=== PATIENT | female | born 1950 | race African-American/Black ===

== ENCOUNTER 2021-09-29 13:24 | Outpatient (REF) | payer MEDICARE, SELFPAY ==
[2021-09-29 16:34] LABS: MANUAL DIFF FLAG NO
[2021-09-29 16:41] LABS: Basophils Absolute Auto 0.1 X10*3/uL (0.0-0.2); Basophils Percent Auto 0.4 % (0-2); Eosinophils Absolute Auto 0.1 X10*3/uL (0.0-0.4); Eosinophils Percent Auto 0.6 % (0-4); Hematocrit 49.9 % (37.0-47.0); Hemoglobin 15.9 g/dl (12.0-16.0); Imm Gran Abs Auto 0.04 X10*3/uL (0.00-0.03); Imm Gran Pct Auto 0.3 % (0.0-0.4); Lymphocytes Absolute Auto 2.8 X10*3/uL (1.2-4.9); Lymphocytes Percent Auto 22.2 % (20-40); Mean Corpuscular HGB Conc 31.9 g/dl (31.0-35.0); Mean Corpuscular Hemoglobin 28.8 pg (27.0-33.0); Mean Corpuscular Volume 90.2 fL (80.0-98.0); Mean Platelet Volume 12.1 fL (9.4-12.3); Monocytes Absolute Auto 0.7 X10*3/uL (0.1-1.2); Monocytes Percent Auto 5.5 % (2-11); Neutrophils Absolute Auto 8.9 x10*3/uL (2.0-8.3); Platelet Count 251 X10*3/uL (160-400); Red Blood Count 5.53 X10*6/uL (4.20-5.50); Red Cell Distribution Width 14.6 % (11.0-16.0); White Blood Count 12.6 X10*3/uL (4.8-10.8)
[2021-09-29 17:01] LABS: Alanine Aminotransferase 12 U/L (0-31); Anion Gap 14 (12-20); Aspartate Amino Transferase 13 U/L (5-31); Blood Urea Nitrogen 27 mg/dL (9-16); Calcium 9.6 mg/dL (8.4-10.2); Carbon Dioxide 29 mmol/L (22-29); Chloride 101 mmol/L (96-108); Cholesterol 176 mg/dL; Estimated Glomerular Filt Rate 27; Glucose Fasting 142 mg/dL (60-99); HDL Cholesterol 32 mg/dL; LDL Cholesterol Calculated 116 mg/dl; Potassium 3.3 mmol/L (3.3-5.1); Sodium 141 mmol/L (135-145); Triglycerides 140 mg/dL
[2021-09-29 17:05] LABS: Creatinine Urine 288.44 mg/dL; Microalbum/Creatinine Ratio Ur 27.7 ug/mg cr
[2021-09-29 17:13] LABS: TSH reflex Free T4 0.97 uIU/mL (0.32-4.0); Vitamin D 25-OH Total 25.1 ng/mL (>30)
== END 2021-09-29 13:25 | disposition home or self-care (01) ==
LOC: HO.HMGCLDS 13:24
PROVIDERS: Visit Provider Internal Medicine
DX: Z00.01 Encounter for general adult medical examination with abnormal findings (principal); E11.9 Type 2 diabetes mellitus without complications; R42 Dizziness and giddiness; I10 Essential (primary) hypertension; G47.33 Obstructive sleep apnea (adult) (pediatric); Z78.0 Asymptomatic menopausal state; E78.5 Hyperlipidemia, unspecified
CPT/HCPCS: 36415; 80048; 80061; 82043; 82306; 84443; 84450; 84460; 85025

== ENCOUNTER 2022-02-20 11:38 | Outpatient (REF) | payer OTHER, SELFPAY ==
--- NOTE | ~2022-02-20 | US_ITS ---
EXAMINATION: US VENOUS WITH DOPPLER UPPER EXTREMITY, RIGHT CLINICAL INFORMATION: Lump, pain and swelling. COMPARISON: None TECHNIQUE: Ultrasound of the upper extremity is performed using compression sonography and color and pulse Doppler flow with assessment of augmentation of flow. There is also imaging and Doppler assessment of the jugular and subclavian veins. Spectral analysis with color-flow imaging is performed. FINDINGS: Respiratory variation, normal compression, and augmented flow are noted throughout the upper extremity including the axillary, brachial, cubital, and radial and ulnar veins. There is normal flow in the internal jugular and subclavian veins. There is no visible deep or superficial thrombophlebitis. Please note corresponding to the symptomatic area within the right wrist is a solid 6 x 3 x 3.4 cm relatively avascular heterogeneous echogenic mass. US/US venous duplex UE RT IMPRESSION: No DVT demonstrated in the right upper extremity. Nonspecific solid soft tissue mass corresponding to the symptomatic area. Clinical assessment and follow-up indicated. MRI may be obtained for more detailed characterization.
== END 2022-02-20 11:39 | disposition home or self-care (01) ==
LOC: HO.HMGCX 11:38
PROVIDERS: PCP Internal Medicine; Visit Provider Internal Medicine
DX: R22.31 Localized swelling, mass and lump, right upper limb (principal)
CPT/HCPCS: 93971

== ENCOUNTER 2022-06-20 12:42 | Outpatient (REF) | payer OTHER, SELFPAY ==
[2022-06-20 13:25] LABS: MANUAL DIFF FLAG NO
[2022-06-20 13:28] LABS: Basophils Absolute Auto 0.1 X10*3/uL (0.0-0.2); Basophils Percent Auto 0.9 % (0-2); Eosinophils Absolute Auto 0.1 X10*3/uL (0.0-0.4); Eosinophils Percent Auto 0.9 % (0-4); Hematocrit 51.1 % (37.0-47.0); Hemoglobin 16.2 g/dl (12.0-16.0); Imm Gran Abs Auto 0.04 X10*3/uL (0.00-0.03); Imm Gran Pct Auto 0.4 % (0.0-0.4); Lymphocytes Absolute Auto 3.7 X10*3/uL (1.2-4.9); Mean Corpuscular HGB Conc 31.7 g/dl (31.0-35.0); Mean Corpuscular Hemoglobin 29.4 pg (27.0-33.0); Mean Corpuscular Volume 92.7 fL (80.0-98.0); Mean Platelet Volume 11.9 fL (9.4-12.3); Monocytes Absolute Auto 0.5 X10*3/uL (0.1-1.2); Monocytes Percent Auto 4.9 % (2-11); Neutrophils Absolute Auto 6.1 x10*3/uL (2.0-8.3); Neutrophils Percent Auto 57.9 % (45-73); Platelet Count 235 X10*3/uL (160-400); Red Blood Count 5.51 X10*6/uL (4.20-5.50); Red Cell Distribution Width 13.8 % (11.0-16.0); White Blood Count 10.5 X10*3/uL (4.8-10.8)
[2022-06-20 13:56] LABS: Alanine Aminotransferase 13 U/L (0-31); Albumin Level 4.1 g/dL (3.5-5.0); Alkaline Phosphatase 87 U/L (39-117); Anion Gap 12 (12-20); Aspartate Amino Transferase 15 U/L (5-31); Bilirubin Total 0.4 mg/dL (0.0-1.0); Blood Urea Nitrogen 19 mg/dL (9-16); Calcium 9.4 mg/dL (8.4-10.2); Carbon Dioxide 33 mmol/L (22-29); Chloride 100 mmol/L (96-108); Cholesterol 213 mg/dL; Creatinine Urine 179.55 mg/dL; Estimated Glomerular Filt Rate 35; Glucose Fasting 124 mg/dL (60-99); HDL Cholesterol 35 mg/dL; LDL Cholesterol Calculated 152 mg/dl; Potassium 3.4 mmol/L (3.3-5.1); Sodium 142 mmol/L (135-145); Total Protein 7.6 g/dL (6.5-8.0); Triglycerides 133 mg/dL
[2022-06-20 14:11] LABS: TSH reflex Free T4 1.86 uIU/mL (0.32-4.0); Vitamin D 25-OH Total 17.7 ng/mL (>30)
== END 2022-06-20 12:43 | disposition home or self-care (01) ==
LOC: HO.HMGCLDS 12:42
PROVIDERS: PCP Internal Medicine; Visit Provider Internal Medicine
DX: I12.9 Hypertensive chronic kidney disease with stage 1 through stage 4 chronic kidney disease, or unspecified chronic kidney disease (principal); E11.22 Type 2 diabetes mellitus with diabetic chronic kidney disease; N18.9 Chronic kidney disease, unspecified; E78.5 Hyperlipidemia, unspecified; R42 Dizziness and giddiness; Z78.0 Asymptomatic menopausal state
CPT/HCPCS: 36415; 80053; 80061; 82043; 82306; 84443; 85025

== ENCOUNTER 2023-09-25 10:41 | Outpatient (REF) | payer OTHER, SELFPAY ==
[2023-09-25 13:53] LABS: MANUAL DIFF FLAG NO
[2023-09-25 14:00] LABS: Basophils Absolute Auto 0.1 X10*3/uL (0.0-0.2); Basophils Percent Auto 0.6 % (0-2); Eosinophils Absolute Auto 0.1 X10*3/uL (0.0-0.4); Eosinophils Percent Auto 1.2 % (0-4); Hematocrit 47.7 % (37.0-47.0); Hemoglobin 15.1 g/dl (12.0-16.0); Imm Gran Abs Auto 0.03 X10*3/uL (0.00-0.03); Imm Gran Pct Auto 0.3 % (0.0-0.4); Lymphocytes Absolute Auto 3.3 X10*3/uL (1.2-4.9); Mean Corpuscular HGB Conc 31.7 g/dl (31.0-35.0); Mean Corpuscular Hemoglobin 29.4 pg (27.0-33.0); Mean Platelet Volume 12.6 fL (9.4-12.3); Monocytes Absolute Auto 0.6 X10*3/uL (0.1-1.2); Neutrophils Absolute Auto 7.7 x10*3/uL (2.0-8.3); Neutrophils Percent Auto 64.9 % (45-73); Platelet Count 236 X10*3/uL (160-400); Red Blood Count 5.13 X10*6/uL (4.20-5.50); Red Cell Distribution Width 15.1 % (11.0-16.0); White Blood Count 11.8 X10*3/uL (4.8-10.8)
[2023-09-25 14:11] LABS: Estimated Average Glucose 131 mg/dL; Hemoglobin A1c % 6.2 % (<6.0)
[2023-09-25 14:25] LABS: Alanine Aminotransferase 16 U/L (0-31); Alkaline Phosphatase 75 U/L (39-117); Anion Gap 13 (12-20); Aspartate Amino Transferase 18 U/L (5-31); Bilirubin Total 0.4 mg/dL (0.0-1.0); Blood Urea Nitrogen 28 mg/dL (9-16); Calcium 9.8 mg/dL (8.4-10.2); Carbon Dioxide 32 mmol/L (22-29); Chloride 102 mmol/L (96-108); Cholesterol 167 mg/dL (<200); Estimated Glomerular Filt Rate 33; Glucose Fasting 119 mg/dL (60-99); HDL Cholesterol 37 mg/dL (>40); LDL Cholesterol Calculated 111 mg/dL (<100); Potassium 3.2 mmol/L (3.3-5.1); Sodium 144 mmol/L (135-145); Triglycerides 97 mg/dL (<150)
[2023-09-25 14:43] LABS: TSH reflex Free T4 1.39 uIU/mL (0.32-4.0); Vitamin D 25-OH Total 36.9 ng/mL (>30)
[2023-09-26 00:14] LABS: Folate 3.8 ng/mL (> or = 4.0); Vitamin B12 227 pg/mL (200-900)
== END 2023-09-25 10:42 | disposition home or self-care (01) ==
LOC: HO.HMGCLDS 10:41
PROVIDERS: PCP Internal Medicine; Visit Provider Internal Medicine
DX: I10 Essential (primary) hypertension (principal); F33.9 Major depressive disorder, recurrent, unspecified; N18.9 Chronic kidney disease, unspecified; Z85.3 Personal history of malignant neoplasm of breast; E11.9 Type 2 diabetes mellitus without complications; Z78.0 Asymptomatic menopausal state; E78.5 Hyperlipidemia, unspecified; R42 Dizziness and giddiness; I89.0 Lymphedema, not elsewhere classified
CPT/HCPCS: 36415; 80053; 80061; 82306; 82607; 82746; 83036; 84443; 85025

== ENCOUNTER 2023-09-28 11:52 | Outpatient (AMB) | payer OTHER, SELFPAY ==
--- NOTE | 2023-09-28 12:20 | MHC.PC.OV ---
Vital Signs 09/28/23 12:21 Height 5 ft 2.5 in Weight 212 lb BMI 38.2 BP 126/64 Blood Pressure Location Lt brachial Position Sitting Pulse 62 Pulse Source Pulse Oximeter Pulse Oximetry (%) 96 Oxygen Delivery Method Room Air Intake Visit Reasons: Followup diabetes, htn Intake Note: Pt is here today for her f/u DM and HTN Allergies Valium injection Adverse Reaction (Unknown, Uncoded 09/28/23 14:43) halucination Medication List - Last Reconciled 09/28/23 by Latia Maloney MD amlodipine 5 mg PO DAILY atenolol 100 mg PO DAILY atorvastatin 20 mg PO DAILY duloxetine 60 mg PO DAILY fluticasone propionate 50 mcg/actuation 1 spray intranasal DAILY glipizide 5 mg PO DAILY meclizine 25 mg PO BID PRN polyethylene glycol 3350 (Miralax) 17 grams PO DAILY PRN solifenacin 10 mg PO DAILY Tobacco use date assessed: 09/28/23 Fall risk assessment: No Falls in past year Last assessed Fall Risk: 09/28/23 Dental Screening Dental Screen Date: 09/28/23 Did you have a dental visit in the last 12 months?: No Was dental information given to patient?: Patient declined HPI Followup diabetes, htn HPI Details 73-year-old lady with complicated medical history, here today for follow-up. 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 Patient has been complaining of pain and swelling in right arm starting from the right axilla down to the fingers on the right. She states that she went to a lymphedema clinic several years ago but did not find any relief and did not continue going. She has not had a mammogram since 2018. She has chronic kidney disease, hypertension, seen by Dr. Torres in 2020 for evaluation but has been lost to follow-up. Latest fasting labs showed serum creatinine of 1.54 and EGFR 33 with serum electrolytes within normal limits. She has no showed her follow-up with Dr. Torres afterwards. She has chronic low back pain with lumbar radiculitis status post laminectomy syndrome. She was previously being seen by Dr. Ames but was unable to continue seeing her due to insurance not being accepted anymore. Was previously getting relief from lumbar epidural injection, would like a referral to a different painting worker. Complains of intermittent episodes of lightheadedness especially with sudden changes in position. Denies any tinnitus, no ear pain. Has just been taking meclizine as needed which affords only temporary relief. Serum potassium was noted to be low on last check. Patient denies any weakness , chest pain or irregular heartbeat Diabetes mellitus currently on glipizide 5 mg once a day. Latest hemoglobin A1c is at 6.2%. Has not been up-to-date with her diabetes retinopathy screening. Hypertension stable controlled on atenolol and amlodipine, and fasting lipids are stable well controlled on atorvastatin 20 mg daily. Takes solifenacin for urinary incontinence. [facility] Medical History (Updated 09/28/23 @ 14:59 by Latia Maloney MD) Hypokalemia Rhinitis Lumbar radiculopathy, chronic Lumbar postlaminectomy syndrome Vaginal mass Urinary incontinence Subcutaneous mass of right forearm Depression, major, recurrent Chronic kidney disease Positional lightheadedness Lymphedema of right arm History of right breast cancer Diabetes mellitus, without long-term current use of insulin Hx of breast cancer Pain and swelling of toe of left foot Dyslipidemia SAVANNAH (obstructive sleep apnea) Dizziness Confusion and disorientation Impaired fasting glucose Surgical History History of lumpectomy of right breast History of section History of tonsillectomy History of abdominal surgery Family History Father Dementia Mother HTN (hypertension) History of CVA (cerebrovascular accident) Stroke Paternal Grandmother Diabetes mellitus Brother No problems noted. Daughter No problems noted. Social History Housing: House Patient Tobacco Use Status: Former Tobacco user Years Smoked: 35 yrs e-Cigarette/Vaping Use: Never Used Second Hand Smoke Exposure: No service: No Current occupational status: retired Cognitive needs: No Hearing needs: No Vision needs: No Questionnaire PHQ-9 Over the last 2 weeks, how often have you been bothered by any of the following problems? 1. Little interest or pleasure in doing things: several days 2. Feeling down, depressed, or hopeless: several days 3. Trouble falling or staying asleep, or sleeping too much: not at all 4. Feeling tired or having little energy: more than half the days 5. Poor appetite or overeating: several days 6. Feeling bad about yourself - or that you are a failure or have let yourself or your family down: not at all 7. Trouble concentrating on things, such as reading the newspaper or watching television: not at all 8. Moving or speaking so slowly that other people could have noticed. Or the opposite - being so fidgety or restless that you have been moving around a lot more than usual: not at all 9. Thoughts that you would be better off or of hurting yourself in some way: not at all Total score: 5 Depression Screening Interpretation: Positive (Currently stable controlled on duloxetine) Depression Screening Follow-up: Existing condition and In treatment Depression Screening Done: Yes Source: Developed by Drs. Manuel Yoon, Chloe Mahajan, Bienvenido Guzman and colleagues, with an educational milan from [employer]. Thrive Questionnaire Date Thrive assessed: 09/28/23 I am a: Patient What is your living situation today?: I have a steady place to live Within the past 12 months, did the food you bought not last and you didn't have the money to get more?: Never true Within the past 12 months, did you worry whether your food would run out before you got money to buy more?: Never true Do you have trouble paying for medicines?: No Do you have trouble getting transportation to medical appointments?: Yes Do you have trouble paying your heating and electricity bill?: Yes Do you have trouble taking care of your child, family member or friend?: No Do you have trouble with day-to-day activities such as bathing, preparing meals, shopping, managing finances, etc.?: No Are you currently unemployed and looking for a job?: No Are you interested in more education?: No THRIVE Score: 2 AUDIT C Alcohol Use Questionnaire (AUDIT-C) 1. How often do you have a drink containing alcohol?: Never Total Score: 0 JEY-7 AMB Questionnaire JEY-7 Date JEY - 7 assessed: 09/28/23 Feeling nervous, anxious, or on edge: 1 = Several days Not being able to stop or control worryin = Several days Worrying too much about different things: 1 = Several days Trouble relaxin = Several days Being so restless that it is hard to sit still: 0 = Not at all Becoming easily annoyed or irritable: 1 = Several days Feeling afraid as if something awful might happen: 1 = Several days Total JEY-7 score (0-4 normal; 5-9 mild; 10-14 moderate; 15-21 severe): 6 Source: Developed by Drs. Manuel Yoon, Chloe Mahajan, Bienvenido Guzman and colleagues, with an educational milan from [employer]. JEY-7 Assessment Billing JEY-7 Assessment Tool: JEY-7 Assessment 35427 Review of Systems Const Denies fever(s), Denies frequent falls and Denies headache(s) Eyes Details: Overdue for her retinopathy screening Reports no additional complaints ENT Denies headache(s) and Denies sore throat Card Denies chest pain, Denies irregular heart rhythm and Denies dyspnea Resp Denies cough and Denies dyspnea GI Reports no additional complaints Musc Reports as per HPI Skin/Breast Denies rash Neuro Denies frequent falls, Denies headache(s) and Denies focal weakness Psych Reports no additional complaints Endo Denies polydipsia and Denies polyuria Saurabh/Lymph Reports no additional complaints Aller/Immun Reports no additional complaints Physical exam (Primary Care) Vital Signs: Last Vital Signs Pulse 62 09/28/23 12:21 BP 126/64 09/28/23 12:21 Pulse Ox 96 09/28/23 12:21 Oxygen Delivery Method Room Air 09/28/23 12:21 BMI result Body Mass Index 38.2 BMI Assessment/Plan discussion: High BMI High, discussed plan: lifestyle, weight reduction, dietary and physical activity Tobacco/Smoking Status: Tobacco use Status Tobacco use date assessed 09/28/23 09/28/23 12:28 Patient Tobacco Use Status Former Tobacco user 09/28/23 12:20 e-Cigarette/Vaping Use Never Used 09/28/23 12:20 PHQ-9: PHQ-9 Score PHQ-9: Total score 5 09/28/23 14:43 Depression Screening Interpretation: Positive (Currently stable controlled on duloxetine) Depression Screening Follow-up: Existing condition and In treatment Thrive Assessment: Date of Thrive Assessment Date Thrive assessed 09/28/23 09/28/23 13:54 Const Other: Accompanied by daughter who answers most of the questions. Patient very poor historian General: comfortable, no acute distress and alert Nutritional Appearance: obese Orientation/consciousness: patient oriented x3 Limitations: ambulation with walker HENMT Head: Yes normocephalic General nose exam: Normal external nose present, No nasal discharge present and Abnormal mucous membranes and turbinates present boggy, pale and other (Swollen) Face and sinus: Yes face symmetric Mouth: Normal oral and palatal mucosa present, oropharynx normal and moist mucous membranes Neck Neck: Yes full ROM, Yes no lymphadenopathy and Yes supple Resp Auscultation: clear to auscultation bilaterally Cardio Rate: regular rate Rhythm: regular rhythm Heart sounds: S1 normal heart sound present and S2 normal heart sound present GI Inspection: Yes Abdominal panniculus present and Yes obesity Palpation (GI): Soft to palpation, nontender, no guarding and no masses Auscultation: normal bowel sounds Back/Spine/Pelvis Back: back tenderness Thoracic/Lumbar Spine: straight leg raise negative bilaterally, paraspinal muscle tenderness on the right in the lower lumbar and straight leg raise positive (right) Skin General skin exam: no rashes or lesions noted Neuro General: patient oriented x3, gait normal, Normal light touch and pain sensation, no focal motor deficits and CN's II-XI intact bilaterally Extrem Other: Nodular mass palpated on distal aspect of right forearm, nontender to palpation, unable to abduct right arm more than 90 degrees due to pain General: Yes full ROM, Yes no joint enlargement, Yes no pedal edema and Yes no calf tenderness Psych Appearance: grossly normal and well kempt Mental Status: mental status grossly normal Speech and movement: Normal speech and movement present Affect: normal affect Results Reviewed Results Reviewed: Laboratory Tests 06/20/22 09/25/23 12:52 10:49 Estimat Average Glucose 131 Hemoglobin A1c % 6.2 H Urine Creatinine 179.55 Urine Microalbumin 142.0 Microalb/Creat Ratio 79.0 Name: Deb Lopez Age/Sex: 73/F : 1950 Unit#: [id number] Attend Dr: Latia Maloney MD Re09/25/23 Status: DEP REF Location: [facility] Disch: SPEC : [id number] ROSALVA: 09/25/23-1055 STATUS: COMP REQ : [id number] RECD: 09/25/[address]: Latia Maloney MD COMP: 09/25/23-1442 ENTERED: 09/25/23-[address]: ORDERED: CMP Fast, Lipid Panel, Vitamin D 25-OH, TSH Rflx Test Result Flag Reference Sodium 144 135-145 mmol/L Potassium 3.2 L 3.3-5.1 mmol/L CL 102 96-108 mmol/L CO2 32 H 22-29 mmol/L Gap 13 12-20 BUN 28 H 9-16 mg/dL Creat 1.54 H 0.5-1.4 mg/dL EGFR 33 NOTE: For -[place]inames[place] individuals, multiply the result by 1.210. Chronic Kidney Disease: Estimated GFR < 60 mL/min/1.73m2 Severe Kidney Disease: Estimated GFR < 15 mL/min/1.73m2 FBS 119 H 60-99 mg/dL A fasting glucose from 100-125 mg/dl is considered impaired (pre-diabetes). CA 9.8 8.4-10.2 mg/dL Total Bili 0.4 0.0-1.0 mg/dL AST (GOT) 18 5-31 U/L ALT (GPT) 16 0-31 U/L Protein, Total 8.0 6.5-8.0 g/dL Alb 4.0 3.5-5.0 g/dL Triglyceride 97 <150 mg/dL Desirable Triglyceride: less than 150 mg/dL Borderline High Triglyceride 150-199 mg/dL High Triglyceride: 200-499 mg/dL Very High Triglyceride: greater than or equal to 5OO mg/dL Cholesterol 167 <200 mg/dL Desirable Cholesterol: less than 200 mg/dL Borderline High Cholesterol: 200-239 mg/dL High Cholesterol: greater than 239 mg/dL LDL Calculated 111 H <100 mg/dL Desirable LDL: less than 100 mg/dL Near Optimal/Above Optimal LDL: 110-129 mg/dL Borderline High LDL: 130-159 mg/dL High LDL: 160-189 mg/dL Very High LDL: greater than or equal to 190 mg/dL HDL 37 L >40 mg/dL Desirable HDL: greater than 40 mg/dL Note: This HDL assay may give artificially low results in patients with liver disease. Alk Phos 75 39-117 U/L Vit D 25-OH Tot 36.9 >30 ng/mL Health Based Reference Values* < 20 ng/mL Deficient 20-30 ng/mL Insufficient > 30 ng/mL Sufficient *Jaclyn DE LEON. N Engl J Med. 2007;357:266-280 Care must be taken in interpreting Vitamin D results from different laboratories and methodologies. Published data demonstrated that results from patients undergoing hemodialysis may show a negative bias when tested with various automated 25-OH vitamin D assays when compared to LC-MS/MS. When testing samples from patients whose predominant form of Vitamin D is Vitamin D2, such as patients receiving Vitamin D2 supplementation, results that are subtherapeutic should be confirmed with another method such as LC-MS/MS. TSH 1.39 0.32-4.0 uIU/mL Assessment and Plan Assessment & Plan (1) Lymphedema of right arm: Code(s): I89.0 - Lymphedema, not elsewhere classified Plan: Referred to occupational therapy for treatment of lymphedema right (2) History of right breast cancer: Comment: DCIS, status post lumpectomy and radiation therapy in 1994 done at [facility] Code(s): Z85.3 - Personal history of malignant neoplasm of breast Plan: Ordered screening mammogram together with bone density scan (3) Lumbar postlaminectomy syndrome: Code(s): M96.1 - Postlaminectomy syndrome, not elsewhere classified Plan: Referred to painting worker at [facility] (4) Lumbar radiculopathy, chronic: Code(s): M54.16 - Radiculopathy, lumbar region Plan: Referred to pain manage specialist at [facility] (5) Positional lightheadedness: Code(s): R42 - Dizziness and giddiness Plan: Referred to physical therapy for vestibular rehab to check and possible positional vertigo started on prescription (6) Hypokalemia: Code(s): E87.6 - Hypokalemia Plan: Prescription sent for potassium chloride 10 mEq per tablet to take once a day for the next 7 days. Repeat another serum potassium in a week (7) Dyslipidemia: Code(s): E78.5 - Hyperlipidemia, unspecified Plan: Reviewed recent fasting lipid profile with patient with LDL cholesterol not at goal . Continue atorvastatin 20 mg daily, , in addition to adherence to low-cholesterol diet and regular exercise, at least 30 minutes 3 to 4 times a week. Advised patient to make healthy food choices, eat more fruits, vegetables, whole grains, wild caught fish and low-fat dairy. Limit amount of meat and fried or fatty food products, as well as processed foods and fast foods. Follow-up scheduled with repeat fasting lipid panel in 3 months. (8) Essential hypertension: Code(s): I10 - Essential (primary) hypertension Plan: Blood pressure at goal of less than 130/80. Continue with current medication. Reinforced importance of following a low sodium diet, getting regular exercise, and lowering stress levels. (9) Diabetes mellitus, without long-term current use of insulin: Code(s): E11.9 - Type 2 diabetes mellitus without complications Plan: Diabetes mellitus stable controlled on present treatment of glipizide 5 mg daily. Hemoglobin A1c today is 6.2% reinforced importance following recommended diet and staying active. Advised to schedule appointment with Ophthalmology for her diabetes retinopathy screening (10) Chronic kidney disease: Code(s): N18.9 - Chronic kidney disease, unspecified Plan: Stat referral made for her to see Dr. Torres, nephrology for further evaluation. Patient has been lost to follow-up since 2019. Reinforced importance of avoiding NSAIDs, getting diabetes, blood pressure and cholesterol under good control (11) Depression, major, recurrent: Code(s): F33.9 - Major depressive disorder, recurrent, unspecified Plan: Continue duloxetine 60 mg daily (12) Urinary incontinence: Code(s): R32 - Unspecified urinary incontinence Plan: Continue solifenacin 10 mg a day Orders: Orders XR DEXA axial skeleton Today I89.0 - Lymphedema, not elsewhere classified, Z12.31 - Encounter for screening mammogram for malignant neoplasm of breast, Z13.820 - Encounter for screening for osteoporosis, Z78.0 - Asymptomatic menopausal state, Z85.3 - Personal history of malignant neoplasm of breast PT Evaluation and Treatment Today R42 - Dizziness and giddiness OT Evaluation and Treatment Today I89.0 - Lymphedema, not elsewhere classified, Z85.3 - Personal history of malignant neoplasm of breast Hemoglobin A1c 12/11/23 E11.9 - Type 2 diabetes mellitus without complications, E78.5 - Hyperlipidemia, unspecified, I10 - Essential (primary) hypertension, N18.9 - Chronic kidney disease, unspecified, R42 - Dizziness and giddiness, Z78.0 - Asymptomatic menopausal state Alanine Aminotransferase 12/11/23 E11.9 - Type 2 diabetes mellitus without complications, E78.5 - Hyperlipidemia, unspecified, I10 - Essential (primary) hypertension, N18.9 - Chronic kidney disease, unspecified, R42 - Dizziness and giddiness, Z78.0 - Asymptomatic menopausal state Aspartate Amino Transferase 12/11/23 E11.9 - Type 2 diabetes mellitus without complications, E78.5 - Hyperlipidemia, unspecified, I10 - Essential (primary) hypertension, N18.9 - Chronic kidney disease, unspecified, R42 - Dizziness and giddiness, Z78.0 - Asymptomatic menopausal state Lipid Panel 12/11/23 E11.9 - Type 2 diabetes mellitus without complications, E78.5 - Hyperlipidemia, unspecified, I10 - Essential (primary) hypertension, N18.9 - Chronic kidney disease, unspecified, R42 - Dizziness and giddiness, Z78.0 - Asymptomatic menopausal state MM tomosynthesis screening BI Today I89.0 - Lymphedema, not elsewhere classified, Z12.31 - Encounter for screening mammogram for malignant neoplasm of breast, Z13.820 - Encounter for screening for osteoporosis, Z78.0 - Asymptomatic menopausal state, Z85.3 - Personal history of malignant neoplasm of breast Potassium 5 Days E87.6 - Hypokalemia Basic Metabolic Panel Fasting 12/11/23 E11.9 - Type 2 diabetes mellitus without complications, E78.5 - Hyperlipidemia, unspecified, I10 - Essential (primary) hypertension, N18.9 - Chronic kidney disease, unspecified, R42 - Dizziness and giddiness, Z78.0 - Asymptomatic menopausal state Vitamin B12 and Folate 12/11/23 E11.9 - Type 2 diabetes mellitus without complications, E78.5 - Hyperlipidemia, unspecified, I10 - Essential (primary) hypertension, N18.9 - Chronic kidney disease, unspecified, R42 - Dizziness and giddiness, Z78.0 - Asymptomatic menopausal state Vitamin D 25-OH Total 12/11/23 E11.9 - Type 2 diabetes mellitus without complications, E78.5 - Hyperlipidemia, unspecified, I10 - Essential (primary) hypertension, N18.9 - Chronic kidney disease, unspecified, R42 - Dizziness and giddiness, Z78.0 - Asymptomatic menopausal state Referrals Pain Management Referral M54.16 - Radiculopathy, lumbar region, M96.1 - Postlaminectomy syndrome, not elsewhere classified Medications: New potassium chloride ER 10 mEq PO DAILY 7 caps 0RF E87.6 - Hypokalemia Coding Level of Care Code Est Pt Level 4 (46667) Diagnoses Lymphedema of right arm I89.0 History of right breast cancer Z85.3 Lumbar postlaminectomy syndrome M96.1 Lumbar radiculopathy, chronic M54.16 Positional lightheadedness R42 Hypokalemia E87.6 Dyslipidemia E78.5 Essential hypertension I10 Diabetes mellitus, without long-term current use of insulin E11.9 Chronic kidney disease N18.9 Depression, major, recurrent F33.9 Urinary incontinence R32 Additional Codes JEY-7 Assessment Billing - JEY-7 Assessment Tool: JEY-7 Assessment 62122 ([id number])
[2023-09-28 12:21] VITALS: BP 126/64; PULSE 62; O2SAT 96; BMI 38.2
== END 2023-09-28 13:27 | disposition home or self-care (01) ==
PROVIDERS: PCP Internal Medicine; Visit Provider Internal Medicine
DX: I12.9 Hypertensive chronic kidney disease with stage 1 through stage 4 chronic kidney disease, or unspecified chronic kidney disease (principal); E11.22 Type 2 diabetes mellitus with diabetic chronic kidney disease; F33.9 Major depressive disorder, recurrent, unspecified; N18.9 Chronic kidney disease, unspecified; I89.0 Lymphedema, not elsewhere classified; Z85.3 Personal history of malignant neoplasm of breast; M96.1 Postlaminectomy syndrome, not elsewhere classified; M54.16 Radiculopathy, lumbar region; R42 Dizziness and giddiness; E87.6 Hypokalemia; E78.5 Hyperlipidemia, unspecified; R32 Unspecified urinary incontinence
CPT/HCPCS: 99214

== ENCOUNTER 2023-10-12 10:53 | Outpatient (RCR) | payer OTHER, SELFPAY ==
[2023-10-12 11:10] VITALS: BP 160/80; PULSE 59; O2SAT 84
--- NOTE | 2023-10-12 13:05 | MHC.PT.EP ---
[facility] [place] [facility] [place] Office [place] Office [address] [place] [address] [phone] F: [phone] F: [phone] F: [phone] F: [phone] Physical Therapy Plan of Care Date of Evaluation: Date of Surgery: Diagnosis: BPPV Assessment: 73 y/o female referred to PT with BPPV. Pt reports dizziness 'like spinning' for about a year with nausea. This has been mostly constant and with good days and bad days. States she just feels off when she stands up with some associated ear clogging sensation and blurry vision. Examination shows normal cervical AROM, normal VBI, normal smooth pursuits and saccades, and (-) for BPPV in Dannie Hallpike/ Roll Test. Upon standing, pt with increased postural sway and will assess balance next visit. Recommend PT 1x/week for 3 weeks to address balance, implement HEP, and optimize functional mobility. ALso recommended pt f/u with PCP regarding low oxygen saturation readings (daughter states it was low at last MD appointment as well) and will f/u wi eye doctor d/t blurry vision Frequency and Duration: The patient will be seen 1x/week for 3 weeks Short Term Goals: I with HEP Assess balance DGI and static Qa Architect Goals: - Pt will successfully keep center of gravity over her PADMINI for 20 seconds while reaching overhead to grab a dish from overhead cabinets - Pt will look up to rinse hair in shower without LOB or dizziness - I with balance HEP in order to prevent falls - Pt will report 50% decrease in dizziness sx Treatment Plan: Modalities to reduce pain, spasms and effusion. Manual therapy to restore motion and function. Therapeutic exercise to improve strength and flexibility. Neuromuscular re-education for posture and balance. Therapeutic activities to return to functional activities of daily living. Electronically signed by: Jessica Capone PT Please sign and return to therapist. Thank you for your referral.
--- NOTE | 2023-12-07 14:59 | MHC.PT.DC ---
[facility] [place] [facility] [place] [facility] [place] [facility] [address] [place] [address] [phone] F: [phone] F: [phone] F: [phone] F: [phone] Physical Therapy Discharge Report Diagnosis: BPPV Date of Surgery: Date of Evaluation: 10/12/23 Date of Discharge: 12/07/23 Treatments to Date: 1 Cancellations to Date: 0 No Shows to Date: 0 Discharge Status: Patient Elected to Stop Discharge Summary: Pt daughter called to cancel further appointments d/t insurance at this time. Electronically signed by: Jessica Capone PT Please sign and return to therapist. Thank you for your referral.
== END 2023-12-07 14:59 | disposition home or self-care (01) ==
LOC: HO.PT 10:53
PROVIDERS: PCP Internal Medicine; Visit Provider Internal Medicine
DX: R42 Dizziness and giddiness (principal)
CPT/HCPCS: 97162

== ENCOUNTER 2023-10-12 13:09 | Outpatient (AMB) | payer OTHER, SELFPAY ==
--- NOTE | 2023-10-12 13:11 | MHC.OFFVIS ---
Vital Signs 10/12/23 13:26 Height 5 ft 2.5 in Weight 212 lb 2 oz BMI 38.2 BP 140/70 H Blood Pressure Location Lt brachial Position Sitting Respiration 14 Pulse 63 Pulse Source Pulse Oximeter Pulse Oximetry (%) 91 L Oxygen Delivery Method Room Air Intake Visit Reasons: Radiculopathy Lumbar Region Intake Note: Pain 01/14 Rest Room Attendant Required: No Accompanied by: Daughter Allergies Valium injection Adverse Reaction (Unknown, Uncoded 09/28/23 14:43) halucination IVP contrast dye Adverse Reaction (Uncoded 10/12/23 13:28) Unknown HPI HPI Radiculopathy Lumbar Region: Details: Patient is a very pleasant 73-year-old female with prior history of right breast cancer (lumpectomy and radiation in 1994), lymphedema right arm, CKD, DM (A1C 6.2), SAVANNAH, chronic pain syndrome, lumbar degenerative disc disease and lumbar disc herniation, presents today for initial evaluation of low back pain that radiates to her right hip and right groin. Denies any recent trauma, injury, or falls. Patient was previously seen by Dr. Gillis and more recently Dr. Ames and received multiple back injections with good results that provided her at least 2-3 months pain relief. Patient reports insurance change this year which is not accepted at her previous Pain Clinic. She would like to establish care with our office to continue received back injections. She has pending density bone scan. Denies previous spine surgery. Her back pain is limiting her walking capacity, interfering with her ADLs and negatively affecting her sleep and social interactions. Denies any fever, unintentional weight loss, dizziness, shortness of breath, chest pain, bladder or bowel dysfunction, or saddle anesthesia. Reports chronic right arm lymphedema and is interested in Vascular consultation. Oswestry Low Back Disability Score=27 (severe disability) Location: Low back pain, right hip and groin Duration: Chronic pain since early 20's after lifting and carrying heavy mattress Characteristics of symptom or complaint: Throbbing, stabbing, sharp, tugging, burning, radiating, tingling, heavy Aggravating or associated factors: Movements, walking, standing, prolonged sitting Relieving factors: Back injections provide 2-3 months, Tylenol, rest Treatment: Back and SIJ injections; [facility] Medical History (Updated 10/12/23 @ 13:49 by JUVENCIO Jeffrey) Hypokalemia Rhinitis Lumbar radiculopathy, chronic Lumbar postlaminectomy syndrome Vaginal mass Urinary incontinence Subcutaneous mass of right forearm Depression, major, recurrent Chronic kidney disease Positional lightheadedness Lymphedema of right arm History of right breast cancer Diabetes mellitus, without long-term current use of insulin Hx of breast cancer Pain and swelling of toe of left foot Dyslipidemia SAVANNAH (obstructive sleep apnea) Dizziness Confusion and disorientation Impaired fasting glucose Surgical History History of lumpectomy of right breast History of section History of tonsillectomy History of abdominal surgery Family History Father Dementia Mother HTN (hypertension) History of CVA (cerebrovascular accident) Stroke Paternal Grandmother Diabetes mellitus Brother No problems noted. Daughter No problems noted. Social History Housing: House Patient Tobacco Use Status: Former Tobacco user Years Smoked: 35 yrs e-Cigarette/Vaping Use: Never Used Second Hand Smoke Exposure: No service: No Current occupational status: retired Cognitive needs: No Hearing needs: No Vision needs: No Review of Systems Const All systems reviewed & are unremarkable except as noted in HPI and below Physical Exam Vital Signs: Last Vital Signs Pulse 63 10/12/23 13:26 Resp 14 10/12/23 13:26 BP 140/70 H 10/12/23 13:26 Pulse Ox 91 L 10/12/23 13:26 Oxygen Delivery Method Room Air 10/12/23 13:26 BMI result Body Mass Index 38.2 General: Appears afebrile. Alert and oriented. Mood and affect appropriate. Follows and participates in conversation appropriately. Respiratory effort is unlabored. No cough. Able to transition from sit to stand unassisted. Ambulates with assistance of family. Ambulates with bilaterally normal heel strike and toe off, reports unsteadiness on the right. Back/Spine/Pelvis Other: Limited lumbar ROM due to pain. Antalgic gait, mild limping favoring left side. Lumbar flexion and extension reproduce moderate pain. Painful facet loading bilaterally. Demonstrates 5/5 left and 4/5 right due to pain strength of quadriceps bilaterally as well as flexion/dorsiflexion of bilateral feet against resistance. 2+ pedal pulses bilaterally. Seated straight leg rise with dorsiflexion positive bilaterally. Diminished patellar and achilles reflexes bilaterally. Rose sign, limited Andres?s, Pelvic compression and Stinchfield tests are positive on the right. Mild groin pain with right I/E hip rotations. Valsalva maneuver negative. Cervical Spine: cervical muscular tenderness, pain with cervical ROM and No Cervical spine tenderness Thoracic/Lumbar Spine: thoracic and lumbar spine normal to inspection, No Thoracic/lumbar spine scar(s), Lasegue's sign positive bilateral and diffuse, pain with thoraco-lumbar ROM, paraspinal muscle tenderness, thoraco-lumbar ROM limited, No thoracic spinal tenderness and lumbar spinal tenderness (L3-S1) Pelvis: buttock tenderness on the right and no sciatic notch tenderness Sacroiliac joints: bilaterally tender to palpation Results Reviewed Results Reviewed: No imaging reports are available for review today. Assessment & Plan Assessment & Plan (1) Lumbar radiculopathy, chronic: Code(s): M54.16 - Radiculopathy, lumbar region Category: Medical (2) Lumbosacral spondylosis: Code(s): M47.817 - Spondylosis without myelopathy or radiculopathy, lumbosacral region Category: Medical (3) Sacroiliac joint pain: Code(s): M53.3 - Sacrococcygeal disorders, not elsewhere classified Category: Medical (4) Lymphedema of right arm: Code(s): I89.0 - Lymphedema, not elsewhere classified Category: Medical Plan Lumbar spine and hip with pelvic view imaging to assess degree of degenerative changes, any subluxation, listhesis, compression fractures or pars defects. Briefly discussed interventional treatments for axial low back pain, SI joint pain and radicular low back pain. Informational pamphlets provided. Medical release request sent to Kelley Thorpe and Dr. Ames for previous spine imaging and previous injections and procedures. Vascular referral for further evaluation for chronic right arm lymphedema. All questions and concerns have been answered and patient agreed with the plan. Follow-up for x-ray results/old records review and sooner as needed. Orders: Orders XR hip BI w PEL1V Today M53.3 - Sacrococcygeal disorders, not elsewhere classified, M54.16 - Radiculopathy, lumbar region XR lumbar spine 4V min Today M47.817 - Spondylosis without myelopathy or radiculopathy, lumbosacral region, M54.16 - Radiculopathy, lumbar region Referrals Vascular Surgery Referral I89.0 - Lymphedema, not elsewhere classified, Z85.3 - Personal history of malignant neoplasm of breast Coding Level of Care Code New Pt Level 4 (19288) Diagnoses Lumbar radiculopathy, chronic M54.16 Lumbosacral spondylosis M47.817 Sacroiliac joint pain M53.3 Lymphedema of right arm I89.0
[2023-10-12 13:26] VITALS: BP 140/70; PULSE 63; RESP 14; O2SAT 91; BMI 38.2
== END 2023-10-12 14:16 | disposition home or self-care (01) ==
PROVIDERS: PCP Internal Medicine; Referring Provider Internal Medicine; Visit Provider Nurse Practitioner Family
DX: M54.16 Radiculopathy, lumbar region (principal); M47.817 Spondylosis without myelopathy or radiculopathy, lumbosacral region; M53.3 Sacrococcygeal disorders, not elsewhere classified; I89.0 Lymphedema, not elsewhere classified
CPT/HCPCS: 99204

== ENCOUNTER → 2023-10-12 13:09 | Outpatient (BNVA) | payer OTHER, SELFPAY | PROVIDERS: PCP Internal Medicine; Referring Provider Internal Medicine; Visit Provider Nurse Practitioner Family ==

== ENCOUNTER 2024-07-01 10:31 | Outpatient (REF) | payer OTHER, SELFPAY ==
--- OUTSIDE RECORDS SUMMARY | 2024-07-01 10:33 | XMS_ITS | Clinical Summary ---
Author Organization [facility] Address [address] [place] [address] Phone Care Team Providers Care Massage Therapist Name Role Phone Alphonse Maloney MD Primary Care Provider [phone] Allergies Active Allergy Reactions Criticality Noted Date Comments Diazepam Other (see comments) 07/26/2018 Iodinated Contrast Media Rash,Nausea And Vomiting Low 06/17/2005 Medications ketoconazole (NIZORAL) 2 % cream Active amLODIPine (NORVASC) 5 MG tablet Take 1 tablet by mouth 1 (one) time each day Active atorvastatin (Lipitor) 20 MG tablet Take 1 tablet by mouth 1 (one) time each day Active atenolol (TENORMIN) 100 MG tablet Take 1 tablet by mouth 1 (one) time each day 9 Active cholecalciferol (VITAMIN D-3) 1.25 MG (72906 UT) capsule Take 1 capsule by mouth 1 (one) time each day Active DULoxetine HCl 60 MG Capsule Delayed Release Sprinkle Take 1 capsule by mouth 1 (one) time each day Active fluticasone (Flonase) 50 MCG/ACT nasal spray Administer 1 spray into each nostril 1 (one) time each day Active meclizine (ANTIVERT) 25 MG tablet Take 1 tablet by mouth 1 (one) time each day Active solifenacin (VESICARE) 10 MG tablet Take 1 tablet by mouth 1 (one) time each day Active glipiZIDE (GLUCOTROL) 5 MG tablet Take 5 mg by mouth 1 (one) time each day with breakfast 4 Active Active Problems Problem Noted Date Diagnosed Date Localized edema 05/25/2022 Chronic kidney disease stage 3 08/19/2020 Degeneration of lumbar intervertebral disc 03/15 /2021 Hypertensive disorder 08/19/2020 Hypertensive renal disease 08/19/2020 Lumbar post-laminectomy syndrome 08/19/2020 Renal disorder due to type 2 diabetes mellitus 0 08/19/2020 Synovial cyst of popliteal space 07/26/2018 Mixed sleep apnea 10/31/2015 Overview (05/25/2022): Sleep Study 12/18/14. Very severe. Gout, not otherwise specified 09/15/2009 History of malignant neoplasm of breast 12/18/19 06 Overview (05/25/2022): right; 1995; lumpectomy; RT Resolved Problems Problem Noted Date Diagnosed Date Resolved Date Serum creatinine above reference range 08/19/2020 05/25/2022 Immunizations Name Administration Dates Next Due H1N1 Inj Preservative Free 06/06/2009 Influenza Split High Dose Pr eservative Free IM 03/12/2017 Influenza, Unspecified 04/06/2015,2013,03/17/2013,04/06,07/09/2011,02/24/2010,06/06/2009 ,04/10/2008,06/04/2006,05/04/2000 Pneumococcal Conjugate 13-Valent 10/11/2015 Pneumococcal Polysaccharide 03/21/2014 Tdap 09/13/2007 Family History Medical History Relation Comments Dementia Father Hypertension Mother Stroke Mother Diabetes Paternal Grandmother Relation Status Comments Father Mother Paternal Grandmother Social History Tobacco Use Types Packs/Day Years Used Date Smoking Tobacco: Never Smokeless Tobacco: Never Alcohol Use Standard Drinks/Week Comments No 0 (1 standard drink = 0.6 oz pur e alcohol) Comments Unknown Sex and Gender Information Value Date Recorded Sex Assigned at Not on file Legal Sex Female 4:58 PM EST Gender Identity Not on file Sexual Orientation Not on file Plan of Treatment Health Maintenance Due Date Last Done Comments Diabetes: Hemoglobin A1C 07/07/2020 Diabetes: Ophthalmology Exam 07/07/2020 Diabetes: Pedal Pulse Checked 07/07/2020 Diabetes: Sensory Foot Exam 07/07/2020 Diabetes: Visual Foot Exam 07/07/2020 Influenza Vaccine (#1) 2024 7, 04/06/2015, 03/21/2014, Additional history exists Pneumococcal Vaccine: 65+ Years Completed 10/11/2015, 03/21/2014 Hepatitis B Vaccine Aged Out No longe r eligible based on patient's age to complete this topic Insurance HUMANA HUMANA Care Teams Massage Therapist Relationship Specialty Start Date End Date Alphonse Maloney MD [address] [place] [address] PCP - General Internal Medicine 03/04/22
--- OUTSIDE RECORDS SUMMARY | 2024-07-01 10:33 | XMS_ITS | Data Portability ---
Author Organization [facility] Address [address] [facility] [address] [place] [address] Care Team Providers Care Patient Support Specialist Name Role Phone ANH FARRELL Primary Care Provider Assessment Encounter Date Assessment Date Assessment LastModified by Organization Details LastModified Time 10/17/2019 10/17/2019 Deb Lopez chiqui 68 year old woman with complaints of low back pain radiating into both lower extremities, right is greater than left. She is S/P back surgery. Her worse pain is in her low back and radiates into her right lower extremity for the past one month. She is doing a home exercise program with persistent pain. On exam, she has pain on flexion and a positive straight leg raising test on the right. Repeat Lumbar epidural steroid injections under fluoroscopic guidance was recommended. The risks and benefits of the procedure were discussed in detail. She wishes to proceed. An appointment has been booked for the same. She needs a refuse driver on the day of the procedure. [email or web address] Not available 10/23/2019 14:50:20 11/28/2019 11/28/2019 Deb Lopez is a 69 year old woman with complaints of low back pain radiating into both lower extremities, right is greater than left. She is S/P back surgery. Her worse pain is in her low back and radiates into her right lower extremity for the past one month. She is doing a home exercise program with persistent pain. On exam, she has pain on flexion and a positive straight leg raising test on the right.MRI Lumbar spine shows Degenerative changes of the lumbar spine are present with central canal and foraminal narrowing. At L4-L5: Facet arthrosis, ligamentum flavum infolding, and concentric disc-osteophyte complex. Small central disc extrusion extending below the level of the disc space. Mild-moderate central canal narrowing. Left subarticular recess narrowing with crowding of the traversing left L5 nerve roots. Mild right and mild-moderate left foraminal narrowing. She is here for a repeat Lumbar epidural steroid injections under fluoroscopic guidance . The risks and benefits of the procedure were discussed in detail. She wishes to proceed. She needs to follow up in four weeks by a telehealth visit. [email or web address] Not available 11/28/2019 16:04:03 12/25/2019 12/25/2019 Deb Lopez chiqui 68 year old woman with complaints of low back pain radiating into both lower extremities, right is greater than left. She is S/P back surgery. Her worse pain is in her low back and radiates into her right lower extremity for the past one month. She is doing a home exercise program with persistent pain. On exam, she has pain on flexion and a positive straight leg raising test on the right. Repeat Lumbar epidural steroid injections under fluoroscopic guidance was recommended. The risks and benefits of the procedure were discussed in detail. She wishes to proceed. An appointment has been booked for the same. She needs a refuse driver on the day of the procedure. [email or web address] Not available 01/12/2020 13:20:06 03/27/2020 03/27/2020 Deb Lopez chiqui 68 year old woman with complaints of low back pain radiating into both lower extremities, right is greater than left. She is S/P back surgery. Her worse pain is in her low back and radiates into her right lower extremity for the past one month. She is doing a home exercise program with persistent pain. On exam, she has pain on flexion and a positive straight leg raising test on the right.Today she is not feeling well. She has been recently diagnosed with diabetes and kidney disease. I have called over to her PCP's office . They will fax over her lab work. Repeat Lumbar epidural steroid injections under fluoroscopic guidance was recommended once she is on a treatment plan for her diabetes. The risks and benefits of the procedure were discussed in detail. She wishes to proceed. She needs a refuse driver on the day of the procedure. Lab work shows Blood glucose level of 129. Creatinine of 1.24. No HbA1c was recorded. She has an appointment with her PCP next week. She can call for an appointment after that visit. [email or web address] Not available 03/27/2020 14:10:27 02/04/2021 02/04/2021 Deb Lopez is a 70 year old woman with complaints of low back pain radiating into both lower extremities, right is greater than left. She is S/P back surgery. Her worse pain is in her low back and radiates into her right lower extremity for the past one month. She is doing a home exercise program with persistent pain. On exam, she has pain on flexion and a positive straight leg raising test on the right.MRI Lumbar spine shows Degenerative changes of the lumbar spine are present with central canal and foraminal narrowing. At L4-L5: Facet arthrosis, ligamentum flavum infolding, and concentric disc-osteophyte complex. Small central disc extrusion extending below the level of the disc space. Mild-moderate central canal narrowing. Left subarticular recess narrowing with crowding of the traversing left L5 nerve roots. Mild right and mild-moderate left foraminal narrowing. She is here for a repeat Lumbar epidural steroid injections under fluoroscopic guidance . The risks and benefits of the procedure were discussed in detail. She wishes to proceed. She needs to follow up in four weeks by a telehealth visit. [email or web address] Not available 02/04/2021 14:56:08 Plan of Treatment Reminders Order Date Submit Date Provider Last Modified By Organization Details Last Modified Time Details Appointments None record ed. Lab None record ed. Referral None record ed. Procedures None record ed. Surgeries None record ed. Imaging None record ed. Medication Orders None record ed. Patient TargetsNo targets recorded. Patient Instructions Encounter Date Encounter Id Patient Instructions Last Modified By Organization Details Last Modified Time 10/17/2019 [id number] Telehealth visit: The patient was located at home for this telephone electronic visit and gave consent for this visit to be conducted via telehealth. 15 minutes was spent on this call and greater than 50% of the visit was spent on counseling and coordination of care. [email or web address] Not available 10/23/2019 14:50:36 11/28/2019 [id number] She was advised against bed rest lasting longer than four days and to continue activities as tolerated. [email or web address] Not available 11/28/2019 16:02:28 12/25/2019 [id number] Telehealth visit: The patient was located at home for this telephone electronic visit and gave consent for this visit to be conducted via telehealth. 15 minutes was spent on this call and greater than 50% of the visit was spent on counseling and coordination of care. [email or web address] Not available 01/12/2020 13:20:08 02/04/2021 [id number] She was advised against bed rest lasting longer than four days and to continue activities as tolerated. [email or web address] Not available 02/04/2021 14:54:45 Reason for Referral None Reported. Problems Name Problem SNOMED Code Status Onset Date Resolution Date Notes Provider Name and Address Organization Details Recorded Time Lumbosacral radiculopathy 4451862 Active Abe dawn MD [address] , [address], [place], [address], [place] [facility] 08:22:35 Degeneration of lumbar intervertebral disc 92463394 Active Abe dawn MD [address] , [address], [place], [address], [place] [facility] 08:22:47 Lumbar post-laminecto my syndrome 803810831 Active Abe dawn MD [address] , [address], [place], [address], [place] [facility] 08:23:12 Problem Notes None recorded. Procedures Surgical History Date Name Laterality Status Provider Name and Address Organization Details Recorded Time 02/05/20 21 Lumbar Epidural steroid injection under fluoroscopic guidance completed Abe Ames MD [address] , [address], [place], [address], [place] [facility] 02/04/2021 14:55:32 11/28/19 20 Lumbar Epidural steroid injection under fluoroscopic guidance completed Abe Ames MD [address] , [address], [place], [address], [place] [facility] 11/28/2019 16:03:20 05/02/20 19 Lumbar Epidural steroid injection under fluoroscopic guidance completed Abe Ames MD [address] , [address], [place], [address], [place] [facility] 05/03/2019 11:18:17 11/23/19 19 Lumbar Epidural steroid injection under fluoroscopic guidance completed Abe Ames MD [address] [facility] , [address], [place], [address], [facility] 11/23/2018 15:14:16 Other completed Kelsie Malagon [facility] 10/12/2018 15:54:52 section completed Kelsie Malagon [facility] 10/12/2018 15:55:07 Lumpectomy completed Kelsie Malagon [facility] 10/12/2018 15:57:25 Imaging Results None recorded. Procedure Notes None recorded. Medical Equipment None Reported. Allergies Allergen ID Allergen Name Allergen Category Reaction Reaction Severity Criticality Documentation Date Start Date Code Code System Note Provider Name and Address Organization Details Recorded Time 96710 Valium medicatio n confusion Not available Not available 10/12/2018 2 RxNorm IV Kelsie mcclain [facility] 9 15:49:02 69741 Iodinated contrast media (substanc e) medicatio n rash Not available Not available 10/12/2018 26343 2004 SNOMED Kelsie mcclain [place] [facility] 9 15:49:47 Medications Name Sig Start Date Stop Date Status Note LastModified by Organization Details LastModified Time atorvastati n 40 mg tablet active Not Available Not Available Not Available metformin 500 mg tablet TAKE 1 TABLET BY MOUTH DAILY 02/04 completed Not Available Not Available Not Available oxybutynin chloride ER 15 mg tablet,exte nded release 24 hr TK 1 T PO QD active Not Available Not Available No t Available atorvastati n 20 mg tablet TK 1 T PO QD 02/04 completed Not Available Not Available Not Available ketoconazol e 2 % shampoo ANA LUISA 5 ML EXT 3 TIMES A WK PRN active Not Available Not Available No t Available atorvastati n 10 mg tablet TAKE 1 TABLET BY MOUTH DAILY active Not Available Not Available No t Available oxybutynin chloride ER 10 mg tablet,exte nded release 24 hr 10/12 completed Not Available Not Available Not Available atenolol 100 mg tablet TAKE 1 TABLET BY MOUTH DAILY active Not Available Not Available No t Available amlodipine 5 mg tablet TAKE 1 TABLET BY MOUTH DAILY active Not Available Not Available No t Available oxycodone-a cetaminophe n 5 mg-325 mg tablet 10/12 completed Not Available Not Available Not Available meclizine 25 mg tablet TAKE 1 TABLET BY MOUTH TWICE DAILY NEEDED FOR DIZZINESS active Not Available Not Available No t Available amlodipine 5 mg-benazepr il 20 mg capsule 05/02 completed Not Available Not Available Not Available indomethaci n 50 mg capsule TAKE 1 CAPSULE BY MOUTH TWICE DAILY NEEDED FOR PAIN active Not Available Not Available No t Available ketoconazol e 2 % topical cream ANA LUISA EXT AA QD FOR 14 DAYS active Not Available Not Available No t Available fluticasone propionate 50 mcg/actuati on nasal spray,suspe nsion SHAKE LQ AND U 1 SPR IEN QD active Not Available Not Available No t Available duloxetine 60 mg capsule,del ayed release TAKE 1 CAPSULE BY MOUTH DAILY active Not Available Not Available No t Available solifenacin 10 mg tablet TAKE 1 TABLET BY MOUTH DAILY active Not Available Not Available No t Available cholecalcif corazon (vitamin D3) 1,250 mcg (50,000 unit) capsule TK 1 C PO 2 TIMES A WK 02/04 completed Not Available Not Available Not Available Fluzone High-Dose 8513-1490 (PF) 180 mcg/0.5 mL intramuscul ar syringe 10/12 completed Not Available Not Available Not Available Fluzone High-Dose (PF) 180 mcg/0.5 mL intramuscul ar syringe PHARMACIS T ADMINISTE RED IMMUNIZAT ION ADMINISTE RED AT TIME OF DISPENSIN G 10/16 completed Not Available Not Available Not Available Vitals Date Recorded Body height Heart rate Oxygen saturation Oxygen saturation in Arterial blood by Pulse oximetry Systolic blood pressure Diastolic blood pressure Provider Name and Address Organization Details Last Updated DateTime 0 160.02 cm 57 /min 94 % 94 % 150 mm[Hg] 69 mm[Hg] Kaylin [facility] 0 14:41:29 Date Recorded Body height Heart rate Oxygen saturation Oxygen saturation in Arterial blood by Pulse oximetry Systolic blood pressure Diastolic blood pressure Provider Name and Address Organization Details Last Updated DateTime 0 160.02 cm 80 /min 97 % 97 % 198 mm[Hg] 78 mm[Hg] Solitario [facility] 0 10:43:21 Date Recorded Body height Heart rate Oxygen saturation Oxygen saturation in Arterial blood by Pulse oximetry Systolic blood pressure Diastolic blood pressure Provider Name and Address Organization Details Last Updated DateTime 1 160.02 cm 59 /min 96 % 96 % 161 mm[Hg] 68 mm[Hg] Kaylin Velazquez [facility] 1 14:35:13 Social History Question Answer Notes LastModified by Organizat ion Details LastModified Time Tobacco Smoking Status Former Smoker Quit > 20 years Not Available [employer] 03/22/2020 03:16:11 What Is Your Level Of Alcohol Consumption? Occasional [id number] Information not available 03/22/2020 Are You Currently Employed? No [id number] Information not available 03/22/2020 Which Illicit Or Recreational Drugs Have You Used? No [id number] Information not available 03/22/2020 Education 4 Year [employer] Information not available 10/12/2018 What Is Your Occupation? Retired [id number] Information not available 03/22/2020 Live Alone Or With Others? Alone Information not available 10/12/2018 Marital Status Single Informatio n not available 10/12/2018 What Was The Date Of Your Most Recent Tobacco Screening? 11/22/2018 [id number] Information not available 03/22/2020 How Many Years Have You Smoked Tobacco? 30 [id number] Information not available 03/22/2020 Sex: Unknown Functional Status None recorded. Mental Status None recorded. Family History Relationship Description Onset Age of this Age Resolved Age Notes LastModified by Organization Details LastModified Time Mother Cerebrovascu lar accident Not available 01/2019 15:51:27 Medical History Condition Response Headache Y Arthritis Y High Cholesterol Y GERD/Reflux Y Cancer Y Hypertension Y Gynecological HistoryNo gynecological history recorded. Obstetrics History GPAL:G 0 P 0 0 0 0 Past Encounters Encounter ID Performer Location Encounter Start Date Encounter Closed Date Diagnosis/Indication Diagnosis SNOMED-CT Code Diagnosis ICD10 Code Diagnosis Note [id number] Abe Ames MD PAIN OFFICE [address] [facility] [address] [facility] [place] [address] 10/12/2018 15:07:37 10/18/2018 08:23:46 Lumbar post-laminectomy syndrome 258067003 M96.1 Degenerati on of lumbar intervertebral disc 78995086 M51.36 Lumbosacra l radiculopathy 9872481 M54.17 [id number] Abe Ames MD PAIN OFFICE [address] [place] [address] 11/01/2018 13:01:11 11/03/2018 08:57:06 Lumbar post-laminectomy syndrome 865332643 M96.1 Degenerati on of lumbar intervertebral disc 08939244 M51.36 Lumbosacra l radiculopathy 5075097 M54.17 [id number] Abe Ames MD PAIN OFFICE [address] [place] [address] 11/22/2018 15:18:56 11/25/2018 09:38:45 Lumbar post-laminectomy syndrome 499336152 M96.1 Degenerati on of lumbar intervertebral disc 35527692 M51.36 Lumbosacra l radiculopathy 1408319 M54.17 [id number] Abe Ames MD PAIN OFFICE [address] [place] [address] 01/05/2019 14:50:35 01/12/2019 14:17:17 Lumbar post-laminectomy syndrome 294168419 M96.1 Degenerati on of lumbar intervertebral disc 05835706 M51.36 Lumbosacra l radiculopathy 8656445 M54.17 [id number] Abe Ames MD [facility] [address] [place] [address] 05/02/2019 13:46:18 05/03/2019 11:20:56 Lumbar post-laminectomy syndrome 079254762 M96.1 Degenerati on of lumbar intervertebral disc 05557262 M51.36 Lumbosacra l radiculopathy 5242501 M54.17 [id number] Abe Ames MD PAIN OFFICE [address] [address] 10/17/2019 10:32:33 10/23/2019 14:51:06 Lumbar post-laminectomy syndrome 224843879 M96.1 Degenerati on of lumbar intervertebral disc 11888113 M51.36 Lumbosacra l radiculopathy 3593072 M54.17 [id number] Abe Ames MD [facility] [address] [facility] [place] [address] 11/28/2019 14:37:33 11/28/2019 16:11:00 Lumbar post-laminectomy syndrome 059958431 M96.1 Degenerati on of lumbar intervertebral disc 15535989 M51.36 Lumbosacra l radiculopathy 6272293 M54.17 [id number] Abe Ames MD PAIN OFFICE [address] [facility] [place] [address] 12/25/2019 11:34:37 01/12/2020 13:20:59 Lumbar post-laminectomy syndrome 410810350 M96.1 Degenerati on of lumbar intervertebral disc 52995351 M51.36 Lumbosacra l radiculopathy 2581969 M54.17 [id number] Abe Ames MD PAIN OFFICE [address] [facility] [place] [address] 03/27/2020 10:38:44 03/27/2020 14:11:03 Lumbar post-laminectomy syndrome 031214462 M96.1 Degenerati on of lumbar intervertebral disc 99802426 M51.36 Lumbosacra l radiculopathy 4809494 M54.17 [id number] Abe Ames MD [facility] [address] [facility] [place] [address] 02/04/2021 13:58:24 02/04/2021 16:05:18 Lumbar post-laminectomy syndrome 095420779 M96.1 Degenerati on of lumbar intervertebral disc 24425428 M51.36 Lumbosacra l radiculopathy 4286135 M54.17 Health Concerns Section Related Observation LastModified by Organization Detai ls LastModified Time None Recorded Concern Status LastModified by Organization Details LastModified Time None Recorded Advance Directives Directive None Recorded Payers Encounter Date Sequence Insurance Name Policy Number Policy Ramos Covered Member ID Ramos Member ID Guarantor Name 10/17/2019 1 [place] [id number] Deb Lopez [id number] Deb Lopez 11/28/2019 1 [place] [id number] Deb Lopez [id number] Deb Lopez 12/25/2019 1 [place] [id number] Deb Lopez [id number] Deb Lopez 03/27/2020 1 [place] [id number] Deb Lopez [id number] Deb Lopez 02/04/2021 1 [place] [id number] Deb Lopez [id number] Deb Lopez Notes Date Note Type Note Provider Name and Address Organization Details Recorded Time 10/17/2019 text/html This is a follow up after a lumbar epidural steroid injection under fluoroscopic guidance. She reports some pain benefit. She is complaining of low back pain radiating into both lower extremities. She has no history of bladder or bowel incontinence.She is changing her PCP due to insurance issues. Abe Ames MD [address] [facility] , [facility] [address], [place], [address], [place] [facility] 10/23/2019 15:18:31 11/28/2019 text/html She is here for a lumbar epidural steroid injection under fluoroscopic guidance. Abe Ames MD [address] [facility] , [address], [place], [address], [place] [facility] 11/29/2019 08:28:35 12/25/2019 text/html This is a follow up after a lumbar epidural steroid injection under fluoroscopic guidance. She reports some pain benefit. She is complaining of low back pain radiating into both lower extremities. She has no history of bladder or bowel incontinence.She is changing her PCP due to insurance issues. Abe Ames MD [address] [facility] , [address], [place], [address], [place] [facility] 01/15/2020 07:57:42 03/27/2020 text/html She is here for a lumbar epidural steroid injection under fluoroscopic guidance. She recently was not feeling. She was nauseous and had seen her PCP. She was Covid negative. Her labs shows her to be a newly diagnosed diabetic and has increase of creatinine levels. She is continuing to feel poorly today. Abe Ames MD [address] [facility] , [address], [place], [address], [facility] 03/27/2020 16:29:22 02/04/2021 text/html She is here for a lumbar epidural steroid injection under fluoroscopic guidance. Abe Ames MD [address] [facility] , [address], [place], [address], [facility] 02/05/2021 08:23:28 OBGyn Episode No OBEpisode recorded.
--- OUTSIDE RECORDS SUMMARY | 2024-07-01 10:33 | XMS_ITS | Clinical Summary ---
Author Organization [facility] Address [address] [place] [address] Care Team Providers Care Hydro Plant Operator Name Role Phone Yobani Yenni Balderas DO Primary Care Provider Surgical History Surgery Date Site/Laterality Comments SECTION PROCEDURE: SECTION Medical History Medical History Date Comments Cancer (CMS/HCC) DX:Cancer (HCC) Gout DX:Gout Hypertension DX:Hypertension GERD (gastroesophageal reflux disease) DX:GERD (gastroesophageal reflux disease) Social History Tobacco Use Types Packs/Day Years Used Date Smoking Tobacco: Never Assessed Sex and Gender Information Value Date Recorded Sex Assigned at Not on file Gender Identity Not on file Sexual Orientation Not on file Obstetrics History Plan of Treatment Health Maintenance Due Date Last Done Comments Zoster Vaccines (1 of 2) 1998 DTaP,Tdap,and Td Vaccines (2 - Td or Tdap) 09/12/2017 09/13/2007 RSV Immunization Patients 60+ Years Old (1 - 1-dose 75+ series) 2023 Cholesterol Screening (Lipid Panel) 06/01/2023 Colorectal Cancer Screening: Colonoscopy 06/01/2023 Depression Screening 06/01/2023 Falls Risk Assessment 06/01/2023 Hepatitis C Screening 06/01/2023 Hypertension/CHF/CAD Annual BMP Blood Test 06/01/2023 Osteoporosis Screening (Bone Density Screening) 06/01/2023 Social Influencers of Health Screening 06/01/2023 COVID-19 Vaccine ( season) 2024 Influenza Vaccine (#1) 2024 7, 04/06/2015, 03/21/2014, Additional history exists Pneumococcal Vaccine: 65+ Years Completed 10/11/2015, 03/21/2014 HIB Vaccines Aged Out No longer eligi ble based on patient's age to complete this topic HPV Vaccines Aged Out No longer eligi ble based on patient's age to complete this topic Hepatitis A Vaccines Aged Out No long er eligible based on patient's age to complete this topic Hepatitis B Vaccines Aged Out No long er eligible based on patient's age to complete this topic IPV Vaccines Aged Out No longer eligi ble based on patient's age to complete this topic MMR Vaccines Aged Out No longer eligi ble based on patient's age to complete this topic Meningococcal ACWY Vaccine Aged Out N o longer eligible based on patient's age to complete this topic RSV Immunization Patients Under 20 months Aged Out No longer eligible based on patient's age to complete this topic Varicella Vaccines Aged Out No longer eligible based on patient's age to complete this topic Care Teams Hydro Plant Operator Relationship Specialty Start Date End Date Yenni Hilton DO [address] [place], [place] PCP - General Family Medicine 07/13/18
--- OUTSIDE RECORDS SUMMARY | 2024-07-01 10:33 | XMS_ITS | Clinical Summary ---
Author Organization [facility] Address [address] [place] [address] Care Team Providers Care Application Support Developer Name Role Phone Yenni Hilton Primary Care Provider Allergies Active Allergy Reactions Criticality Noted Date Comments Iodinated Contrast Media 07/26/2018 Diazepam 07/26/2018 Medications Medication Sig Dispensed Refills Start Date End Date Status amLODIPine-benazepril (LOTREL 5-20) 5-20 MG per capsule 0 06/30/2018 Activ e atenolol (TENORMIN) tablet 100 mg 0 06/30/2018 Active atorvastatin (LIPITOR) tablet 40 mg 0 07/01/2018 Active DULoxetine (CYMBALTA) DR capsule 60 mg 0 07/10/2018 Active oxybutynin (DITROPAN-XL) 10 MG 24 hr tablet 0 06/30/2018 Active oxyCODONE-acetaminophen (PERCOCET) 5-325 MG per tablet 0 07/11/2018 Activ e Active Problems Problem Noted Date Diagnosed Date Fontenot's cyst of knee, 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 Social History Tobacco Use Types Packs/Day Years Used Date Smoking Tobacco: Never Assessed Sex and Gender Information Value Date Recorded Sex Assigned at Not on file Gender Identity Not on file Sexual Orientation Not on file Last Filed Vital Signs Vital Sign Reading Time Taken Comments Blood Pressure - - Pulse - - Temperature - - Respiratory Rate - - Oxygen Saturation - - Inhaled Oxygen Concentration - - Weight 100.2 kg (221 lb) 07/26/2018 2:52 PM EST Height 157.5 cm (5' 2 ) 07/26/2018 2:52 PM EST Body Mass Index 40.42 07/26/2018 2:52 PM EST Plan of Treatment Health Maintenance Due Date Last Done Comments Hepatitis C Screening 1950 COVID-19 Vaccine (#1) 1950 Depression Screening 1960 Preventative Health Evaluation 1966 DTap / Tdap / Td (1 - Tdap) 1967 Shingrix-Zoster Vaccine (1 of 2) 1998 Fall Risk Assessment 2013 Osteoporosis Screening (DEXA Scan) 2013 Pneumococcal Vaccine (1 of 1 - PCV) 2013 RSV Adult > 60+ Yrs or Pregn ant (1 - 1-dose 75+ series) 2023 Influenza Vaccine (#1) 2024 Hepatitis B Vaccines Aged Out No long er eligible based on patient's age to complete this topic RSV Ped < 20 months Aged Out No longe r eligible based on patient's age to complete this topic Care Teams Application Support Developer Relationship Specialty Start Date End Date Yenni Hilton DO [address] [id number] PCP - General Family Medicine 07/13/18
[2024-07-01 13:17] LABS: Estimated Average Glucose 128 mg/dL; Hemoglobin A1C 176.8949 umol/L; Hemoglobin A1c % 6.1 % (<6.0); Total Hemoglobin (HGBA1C) 4098.6302 umol/L
[2024-07-01 13:29] LABS: Alanine Aminotransferase 11 U/L (0-31); Anion Gap 10 (12-20); Aspartate Amino Transferase 20 U/L (5-31); Blood Urea Nitrogen 17 mg/dL (9-16); Calcium 9.3 mg/dL (8.4-10.2); Carbon Dioxide 33 mmol/L (22-29); Chloride 101 mmol/L (96-108); Cholesterol 165 mg/dL (<200); Estimated Glomerular Filt Rate 45; Glucose Fasting 109 mg/dL (60-99); HDL Cholesterol 34 mg/dL (>40); LDL Cholesterol Calculated 105 mg/dL (<100); Potassium 3.2 mmol/L (3.3-5.1); Sodium 141 mmol/L (135-145); Triglycerides 131 mg/dL (<150)
[2024-07-01 13:45] LABS: Vitamin D 25-OH Total 27.3 ng/mL (>30)
[2024-07-01 13:59] LABS: Folate 3.6 ng/mL (> or = 4.0); Vitamin B12 234 pg/mL (200-900)
== END 2024-07-01 10:32 | disposition home or self-care (01) ==
LOC: HO.HMGCLDS 10:31
PROVIDERS: PCP Internal Medicine; Visit Provider Internal Medicine
DX: E11.22 Type 2 diabetes mellitus with diabetic chronic kidney disease (principal); I12.9 Hypertensive chronic kidney disease with stage 1 through stage 4 chronic kidney disease, or unspecified chronic kidney disease; N18.9 Chronic kidney disease, unspecified; E78.5 Hyperlipidemia, unspecified; R42 Dizziness and giddiness; Z78.0 Asymptomatic menopausal state
CPT/HCPCS: 36415; 80048; 80061; 82306; 82607; 82746; 83036; 84450; 84460

== ENCOUNTER 2024-07-04 12:56 | Outpatient (AMB) | payer OTHER, SELFPAY ==
--- NOTE | 2024-07-04 12:58 | MHC.PC.OV ---
Vital Signs 07/04/24 12:59 Height 5 ft 2.5 in Weight 213 lb BMI 38.3 BP 110/82 Blood Pressure Location Lt brachial Position Sitting Respiration 14 Pulse 58 Pulse Source Pulse Oximeter Temp 98.5 F Temp Source Oral Pulse Oximetry (%) 95 Oxygen Delivery Method Room Air Intake Visit Reasons: Labs f/up-ok with [facility] Valium injection Adverse Reaction (Unknown, Uncoded 07/04/24 13:10) halucination IVP contrast dye Adverse Reaction (Uncoded 07/04/24 13:10) Unknown Medication List - Last Reconciled 07/04/24 by Latia Maloney MD amlodipine 5 mg PO DAILY atenolol 100 mg PO DAILY atorvastatin 20 mg PO DAILY duloxetine 60 mg PO DAILY fluticasone propionate 50 mcg/actuation 1 spray intranasal DAILY glipizide 5 mg PO DAILY meclizine 25 mg PO BID PRN polyethylene glycol 3350 (Miralax) 17 grams PO DAILY PRN potassium chloride ER 10 mEq PO DAILY solifenacin 10 mg PO DAILY Tobacco use date assessed: 07/04/24 Fall risk assessment: No Falls in past year Last assessed Fall Risk: 07/04/24 Dental Screening Dental Screen Date: 07/04/24 Did you have a dental visit in the last 12 months?: No Did you have a dental problem in the last 6 months where you did not have access to dental care?: No Was dental information given to patient?: No HPI Labs f/up-ok with [facility] HPI Details 74-year-old lady with hypertension, hyperlipidemia, diabetes mellitus, here today for follow-up. She has been compliant with taking her medications, with recent fasting labs showing control of diabetes, with hemoglobin A1c at 6.1%, and fasting lipids are within normal limits . Her blood pressure is controlled on atenolol and amlodipine Complains intermittent episodes of epigastric pain usually after food intake and at night. Denies any accompanying nausea, no vomiting, no blood in stool, or alteration in bowel habits She also has been complaining of pain and stiffness in both shoulder joints especially on abduction and hyperextension of joints, no history of trauma [facility] Medical History (Updated 07/10/24 @ 01:18 by Latia Maloney MD) Heartburn symptom Hypokalemia Rhinitis Lumbar radiculopathy, chronic Lumbar postlaminectomy syndrome Vaginal mass Urinary incontinence Subcutaneous mass of right forearm Depression, major, recurrent Chronic kidney disease Positional lightheadedness Lymphedema of right arm History of right breast cancer Diabetes mellitus, without long-term current use of insulin Hx of breast cancer Pain and swelling of toe of left foot Dyslipidemia SAVANNAH (obstructive sleep apnea) Dizziness Confusion and disorientation Impaired fasting glucose Surgical History History of lumpectomy of right breast History of section History of tonsillectomy History of abdominal surgery Family History Father Dementia Mother HTN (hypertension) History of CVA (cerebrovascular accident) Stroke Paternal Grandmother Diabetes mellitus Brother No problems noted. Daughter No problems noted. Social History Housing: House Patient Tobacco Use Status: Former Tobacco user Years Smoked: 35 yrs e-Cigarette/Vaping Use: Never Used Second Hand Smoke Exposure: No service: No Current occupational status: retired Cognitive needs: No Hearing needs: No Vision needs: Yes Questionnaire Thrive Questionnaire Date Thrive assessed: 09/28/23 JEY-7 AMB Questionnaire JEY-7 Date JEY - 7 assessed: 09/28/23 Source: Developed by Drs. Manuel Yoon, Chloe Mahajan, Bienvenido Guzman and colleagues, with an educational milan from [employer]. Review of Systems Const Denies fever(s), Denies frequent falls and Denies headache(s) Eyes Details: Overdue for her retinopathy screening Reports no additional complaints ENT Denies headache(s) Card Denies chest pain, Denies irregular heart rhythm and Denies dyspnea Resp Denies cough and Denies dyspnea GI Reports as per HPI Reports no additional complaints Musc Reports no additional complaints Neuro Denies frequent falls, Denies headache(s) and Denies focal weakness Psych Reports no additional complaints Endo Denies polydipsia and Denies polyuria Saurabh/Lymph Reports no additional complaints Aller/Immun Reports no additional complaints Physical exam (Primary Care) Vital Signs: Last Vital Signs Temp 98.5 F 07/04/24 12:59 Pulse 58 07/04/24 12:59 Resp 14 07/04/24 12:59 BP 110/82 07/04/24 12:59 Pulse Ox 95 07/04/24 12:59 Oxygen Delivery Method Room Air 07/04/24 12:59 BMI result Body Mass Index 38.3 BMI Assessment/Plan discussion: High BMI High, discussed plan: lifestyle, weight reduction, dietary and physical activity Tobacco/Smoking Status: Tobacco use Status Tobacco use date assessed 07/04/24 07/04/24 13:10 Patient Tobacco Use Status Former Tobacco user 07/04/24 13:00 e-Cigarette/Vaping Use Never Used 07/04/24 13:00 Thrive Assessment: Date of Thrive Assessment Date Thrive assessed 09/28/23 07/04/24 13:00 Const General: no acute distress and alert Nutritional Appearance: obese Orientation/consciousness: patient oriented x3 Limitations: ambulation with walker HENMT Head: Yes normocephalic General nose exam: Normal external nose present and No nasal discharge present Face and sinus: Yes face symmetric Mouth: Normal oral and palatal mucosa present, oropharynx normal and moist mucous membranes Neck Neck: Yes full ROM, Yes no lymphadenopathy and Yes supple Resp Auscultation: clear to auscultation bilaterally Cardio Rate: regular rate Rhythm: regular rhythm Heart sounds: S1 normal heart sound present and S2 normal heart sound present GI Inspection: Yes Abdominal panniculus present and Yes obesity Palpation (GI): Soft to palpation, Tenderness to palpation present (GI) in the epigastrum, no guarding and no masses Auscultation: normal bowel sounds Back/Spine/Pelvis Back: back tenderness Neuro General: patient oriented x3, gait normal, Normal light touch and pain sensation, no focal motor deficits and CN's II-XI intact bilaterally Extrem Other: Decreased range of motion of shoulder joint due to pain , no gross bone deformity or joint swelling seen General: Yes no joint enlargement, Yes no pedal edema and Yes no calf tenderness Results Reviewed Results Reviewed: Laboratory Tests 07/01/24 10:50 Estimat Average Glucose 128 Hemoglobin A1c % 6.1 H Name: Deb Lopez Age/Sex: 74/F : 1950 Unit#: [id number] Attend Dr: Latia Maloney MD Re07/01/24 Status: DEP REF Location: [facility] Disch: SPEC : [id number] ROSALVA: 07/01/24-1050 STATUS: COMP REQ : [id number] RECD: 07/01/24-[address]: Latia Maloney MD COMP: 07/01/24-1345 ENTERED: 07/01/24-[address]: ORDERED: Met Prof Fast, AST, ALT, Lipid Panel, Vitamin D 25-OH Test Result Flag Reference Sodium 141 135-145 mmol/L Potassium 3.2 L 3.3-5.1 mmol/L CL 101 96-108 mmol/L CO2 33 H 22-29 mmol/L Gap 10 L 12-20 BUN 17 H 9-16 mg/dL Creat 1.16 0.5-1.4 mg/dL eGFR 45 Chronic Kidney Disease: Estimated GFR < 60 mL/min/1.73m2 Severe Kidney Disease: Estimated GFR < 15 mL/min/1.73m2 FBS 109 H 60-99 mg/dL A fasting glucose from 100-125 mg/dl is considered impaired (pre-diabetes). CA 9.3 8.4-10.2 mg/dL AST (GOT) 20 5-31 U/L ALT (GPT) 11 0-31 U/L Triglyceride 131 <150 mg/dL Desirable Triglyceride: less than 150 mg/dL Borderline High Triglyceride 150-199 mg/dL High Triglyceride: 200-499 mg/dL Very High Triglyceride: greater than or equal to 5OO mg/dL Cholesterol 165 <200 mg/dL Desirable Cholesterol: less than 200 mg/dL Borderline High Cholesterol: 200-239 mg/dL High Cholesterol: greater than 239 mg/dL LDL Calculated 105 H <100 mg/dL Desirable LDL: less than 100 mg/dL Near Optimal/Above Optimal LDL: 110-129 mg/dL Borderline High LDL: 130-159 mg/dL High LDL: 160-189 mg/dL Very High LDL: greater than or equal to 190 mg/dL HDL 34 L >40 mg/dL Desirable HDL: greater than 40 mg/dL Note: This HDL assay may give artificially low results in patients with liver disease. Vit D 25-OH Tot 27.3 L >30 ng/mL Health Based Reference Values* < 20 ng/mL Deficient 20-30 ng/mL Insufficient > 30 ng/mL Sufficient Coding Level of Care Code Est Pt Level 4 (55055) Complex EM visit Add On G2211 Diagnoses Heartburn symptom R12 Hypokalemia E87.6 Folic acid deficiency E53.8 Vitamin D deficiency E55.9 Bilateral shoulder pain M25.511; M25.512 Diabetes mellitus, without long-term current use of insulin E11.9 Essential hypertension I10 Dyslipidemia E78.5 Stage 3a chronic kidney disease N18.31 Chronic kidney disease stage: stage 3 (moderate) Chronic kidney disease stage 3 subtype: stage 3a (GFR 45-59) Assessment & Plan Assessment & Plan (1) Heartburn symptom: Code(s): R12 - Heartburn Category: Medical Plan: Upper GI series ordered, advised to try taking [id number] Pepcid AC 20 mg daily before eating (2) Hypokalemia: Code(s): E87.6 - Hypokalemia Category: Medical Plan: Latest fasting labs showed low potassium level, prescription sent for potassium chloride ER 10 mEq to take 1 tablet daily for 7 days. (3) Folic acid deficiency: Code(s): E53.8 - Deficiency of other specified B group vitamins Category: Medical Plan: Check folic acid level (4) Vitamin D deficiency: Code(s): E55.9 - Vitamin D deficiency, unspecified Category: Medical Plan: Check vitamin-D level prescription sent for vitamin-D 3 50 mcg per tablet to take once a day (5) Bilateral shoulder pain: Code(s): M25.511 - Pain in right shoulder; M25.512 - Pain in left shoulder Category: Medical Plan: X-ray of right and left shoulder ordered. Prescription sent for meloxicam to take 50 mg once a day as needed for pain take it always with a meal (6) Diabetes mellitus, without long-term current use of insulin: Code(s): E11.9 - Type 2 diabetes mellitus without complications Category: Medical Plan: Diabetes mellitus controlled, continue with adherence to healthy eating habits and continue taking glipizide 5 mg once a day with a meal. Advised to schedule appointment with Ophthalmology for diabetes retinopathy screening (7) Essential hypertension: Code(s): I10 - Essential (primary) hypertension Category: Medical Plan: Blood pressure at goal of less than 130/80. Continue with amlodipine 5 mg daily atenolol 100 mg daily Reinforced importance of following a low sodium diet, getting regular exercise, and lowering stress levels. (8) Dyslipidemia: Code(s): E78.5 - Hyperlipidemia, unspecified Category: Medical Plan: Fasting lipids are within normal limits except for mildly elevated LDL cholesterol, continue on atorvastatin 20 mg daily (9) Chronic kidney disease: Code(s): N18.9 - Chronic kidney disease, unspecified Category: Medical Qualifiers: Chronic kidney disease stage: stage 3 (moderate) Chronic kidney disease stage 3 subtype: stage 3a (GFR 45-59) Qualified Code(s): N18.31 - Chronic kidney disease, stage 3a Plan: Previously was being seen by Dr. Torres and was supposed to schedule follow-up appointment. Patient's daughter states that they will call and schedule appointment with Nephrology Orders: Orders XR shoulder RT min 2V 07/04/24 M25.511 - Pain in right shoulder, M25.512 - Pain in left shoulder Vitamin B12 and Folate 07/04/24 E53.8 - Deficiency of other specified B group vitamins, E55.9 - Vitamin D deficiency, unspecified, E87.6 - Hypokalemia Vitamin D 25-OH Total 07/04/24 E53.8 - Deficiency of other specified B group vitamins, E55.9 - Vitamin D deficiency, unspecified, E87.6 - Hypokalemia FL upper GI series 07/04/24 R12 - Heartburn XR shoulder LT min 2V 07/04/24 M25.511 - Pain in right shoulder, M25.512 - Pain in left shoulder Basic Metabolic Panel Fasting 07/04/24 E53.8 - Deficiency of other specified B group vitamins, E55.9 - Vitamin D deficiency, unspecified, E87.6 - Hypokalemia Medications: New cholecalciferol (vitamin D3) 50 mcg PO DAILY 90 caps 2RF meloxicam Take always with a meal 15 mg PO DAILY PRN 30 tabs 0RF Shoulder pain folic acid 1 mg PO DAILY 90 tabs 0RF Refilled potassium chloride ER 10 mEq PO DAILY 7 caps 0RF E87.6 - Hypokalemia Discontinued polyethylene glycol 3350 Discontinued Reason: Patient no longer taking 17 grams PO DAILY PRN 14 ea 0RF constipation
[2024-07-04 12:59] VITALS: BP 110/82; PULSE 58; RESP 14; TEMP 36.9; O2SAT 95; BMI 38.3
--- OUTSIDE RECORDS SUMMARY | 2024-07-04 13:51 | XMS_ITS | Data Portability ---
Author Organization [facility] Address [address] [facility] [address] [place] [address] Care Team Providers Care Safety Deposit Boxes Custodian Name Role Phone ANH FARRELL Primary Care [...] booked for the same. She needs a regional company flatbed truck driver on the day of the procedure. [...] booked for the same. She needs a regional company flatbed truck driver on the day of the procedure. [...] She wishes to proceed. She needs a regional company flatbed truck driver on the day of the procedure. [...] By Organization Details Last Modified Time 10/17/2019 [id number] Telehealth visit: The patient was located at home for this telephone electronic visit and gave consent for this visit to be conducted via telehealth. 15 minutes was spent on this call and greater than 50% of the visit was spent on counseling and coordination of care. [email or web address] Not available 10/23/2019 14:50:36 11/28/2019 [id number] She was advised against bed rest lasting longer than four days and to continue activities as tolerated. [email or web address] Not available 11/28/2019 16:02:28 12/25/2019 [id number] Telehealth visit: The patient was located at home for this telephone electronic visit and gave consent for this visit to be conducted via telehealth. 15 minutes was spent on this call and greater than 50% of the visit was spent on counseling and coordination of care. [email or web address] Not available 01/12/2020 13:20:08 02/04/2021 [id number] She was advised against bed rest lasting longer than four days and to continue activities as tolerated. [email or web address] Not available 02/04/2021 14:54:45 Reason for Referral None Reported. Problems Name Problem SNOMED Code Status Onset Date Resolution Date Notes Provider Name and Address Organization Details Recorded Time Lumbosacral radiculopathy 9978476 Active Abe dawn MD [address] , [address], [place], [address], [place] [facility] 08:22:35 Degeneration of lumbar intervertebral disc 14378152 Active Abe dawn MD [address] , [address], [place], [address], [place] [facility] 08:22:47 Lumbar post-laminecto my syndrome 877574216 Active Abe dawn MD [address] , [address], [place], [address], [place] [facility] 08:23:12 Problem Notes None recorded. Procedures Surgical History Date Name Laterality Status Provider Name and Address Organization Details Recorded Time 02/05/20 21 Lumbar Epidural steroid injection under fluoroscopic guidance completed Abe Ames MD [address] , [address], [place], [address], [place] [facility] 02/04/2021 14:55:32 11/28/19 20 Lumbar Epidural steroid injection under fluoroscopic guidance completed Abe Ames MD [address] , [address], [place], [address], [place] [facility] 11/28/2019 16:03:20 05/02/20 19 Lumbar Epidural steroid injection under fluoroscopic guidance completed Abe Ames MD [address] , [address], [place], [address], [place] [facility] 05/03/2019 11:18:17 11/23/19 19 Lumbar Epidural steroid injection under fluoroscopic guidance completed Abe Ames MD [address] [facility] , [address], [place], [address], [facility] 11/23/2018 15:14:16 [...] Name and Address Organization Details Recorded Time 56789 Valium medicatio n confusion Not available Not available 10/12/2018 2 RxNorm IV Kelsie mcclain [place] [facility] 9 15:49:02 93586 Iodinated contrast media (substanc e) medicatio n rash Not available Not available 10/12/2018 59822 2004 SNOMED Kelsie mcclain [place] [facility] [...] Available Not Available Not Available Fluzone High-Dose 8690-7649 (PF) 180 mcg/0.5 mL intramuscul ar syringe [...] Is Your Level Of Alcohol Consumption? Occasional [id number] Information not available 03/22/2020 Are You Currently Employed? No [id number] Information not available 03/22/2020 Which Illicit Or Recreational Drugs Have You Used? No [id number] Information not available 03/22/2020 Education 4 Year College [employer] Information not available 10/12/2018 What Is Your Occupation? Retired [id number] Information not available 03/22/2020 Live Alone Or With Others? Alone Information not available 10/12/2018 Marital Status Single Informatio n not available 10/12/2018 What Was The Date Of Your Most Recent Tobacco Screening? 11/22/2018 [id number] Information not available 03/22/2020 How Many Years Have You Smoked Tobacco? 30 [id number] Information not available 03/22/2020 Sex: Unknown Functional Status None recorded. Mental Status None recorded. Family History Relationship Description Onset Age of this Age Resolved Age Notes LastModified by Organization Details LastModified Time Mother Cerebrovascu lar accident Not available 01/2019 15:51:27 Medical History Condition Response Arthritis Y Cancer Y Headache Y High Cholesterol Y GERD/Reflux Y Hypertension Y Gynecological HistoryNo gynecological history recorded. Obstetrics History GPAL:G 0 P 0 0 0 0 Past Encounters Encounter ID Performer Location Encounter Start Date Encounter Closed Date Diagnosis/Indication Diagnosis SNOMED-CT Code Diagnosis ICD10 Code Diagnosis Note [id number] Abe Ames MD PAIN OFFICE [address] [facility] [address] [facility] [place] [address] 10/12/2018 15:07:37 10/18/2018 08:23:46 Lumbar post-laminectomy syndrome 081872960 M96.1 Degenerati on of lumbar intervertebral disc 64611807 M51.36 Lumbosacra l radiculopathy 3513025 M54.17 [id number] Abe Ames MD PAIN OFFICE [address] [employer] [place] [address] 11/01/2018 13:01:11 11/03/2018 08:57:06 Lumbar post-laminectomy syndrome 526040684 M96.1 Degenerati on of lumbar intervertebral disc 58913696 M51.36 Lumbosacra l radiculopathy 6726498 M54.17 [id number] Abe Ames MD PAIN OFFICE [address] [place] [address] 11/22/2018 15:18:56 11/25/2018 09:38:45 Lumbar post-laminectomy syndrome 473797061 M96.1 Degenerati on of lumbar intervertebral disc 93299986 M51.36 Lumbosacra l radiculopathy 1528251 M54.17 [id number] Abe Ames MD PAIN OFFICE [address] [place] [address] 01/05/2019 14:50:35 01/12/2019 14:17:17 Lumbar post-laminectomy syndrome 832476393 M96.1 Degenerati on of lumbar intervertebral disc 56537876 M51.36 Lumbosacra l radiculopathy 4999987 M54.17 [id number] Abe Ames MD [facility] [address] [employer] [place] [address] 05/02/2019 13:46:18 05/03/2019 11:20:56 Lumbar post-laminectomy syndrome 472978447 M96.1 Degenerati on of lumbar intervertebral disc 57974829 M51.36 Lumbosacra l radiculopathy 0958450 M54.17 [id number] Abe Ames MD PAIN OFFICE [address] [employer],[place] [address] 10/17/2019 10:32:33 10/23/2019 14:51:06 Lumbar post-laminectomy syndrome 113651058 M96.1 Degenerati on of lumbar intervertebral disc 31602906 M51.36 Lumbosacra l radiculopathy 5361416 M54.17 [id number] Abe Ames MD [facility] [address] [employer] [address] [facility] [place] [address] 11/28/2019 14:37:33 11/28/2019 16:11:00 Lumbar post-laminectomy syndrome 942414954 M96.1 Degenerati on of lumbar intervertebral disc 31809335 M51.36 Lumbosacra l radiculopathy 7398483 M54.17 [id number] Abe Ames MD PAIN OFFICE [address] [employer] [facility] [place] [address] 12/25/2019 11:34:37 01/12/2020 13:20:59 Lumbar post-laminectomy syndrome 015634745 M96.1 Degenerati on of lumbar intervertebral disc 41884117 M51.36 Lumbosacra l radiculopathy 0258126 M54.17 [id number] Abe Ames MD PAIN OFFICE [address] [employer] [employer] [facility] [place] [address] 03/27/2020 10:38:44 03/27/2020 14:11:03 Lumbar post-laminectomy syndrome 190742760 M96.1 Degenerati on of lumbar intervertebral disc 56813186 M51.36 Lumbosacra l radiculopathy 9940754 M54.17 [id number] Abe Ames MD [facility] [address] [employer] [facility] [place] [address] 02/04/2021 13:58:24 02/04/2021 16:05:18 Lumbar post-laminectomy syndrome 700858174 M96.1 Degenerati on of lumbar intervertebral disc 01829353 M51.36 Lumbosacra l radiculopathy 1815897 M54.17 Health Concerns Section Related Observation LastModified by Organization Detai ls LastModified Time None Recorded Concern Status LastModified by Organization Details LastModified Time None Recorded Advance Directives Directive None Recorded Payers Encounter Date Sequence Insurance Name Policy Number Policy Ramos Covered Member ID Ramos Member ID Guarantor Name 10/17/2019 1 [place] [id number] Deb Lopez [id number] Deb Lopez 11/28/2019 1 [place] [id number] Deb Lopez [id number] Deb Lopez 12/25/2019 1 [place] [id number] Deb Lopez [id number] Deb Lopez 03/27/2020 1 [place] [id number] Deb Lopez [id number] Deb Lopez 02/04/2021 1 [place] [id number] Deb Lopez [id number] Deb Lopez Notes Date Note Type Note [...] to insurance issues. Abe Ames MD [address] [facility] , [facility] [address], [place], [address], [place] [facility] 10/23/2019 15:18:31 11/28/2019 text/html She is here for a lumbar epidural steroid injection under fluoroscopic guidance. Abe Ames MD [address] [facility] , [address], [place], [address], [place] [facility] 11/29/2019 08:28:35 12/25/2019 text/html This is a follow up after a lumbar epidural steroid injection under fluoroscopic guidance. She reports some pain benefit. She is complaining of low back pain radiating into both lower extremities. She has no history of bladder or bowel incontinence.She is changing her PCP due to insurance issues. Abe Ames MD [address] [facility] , [address], [place], [address], [place] [facility] 01/15/2020 07:57:42 [...] feel poorly today. Abe Ames MD [address] [facility] , [address], [place], [address], [facility] 03/27/2020 16:29:22 02/04/2021 text/html She is here for a lumbar epidural steroid injection under fluoroscopic guidance. Abe Ames MD [address] [facility] , [address], [place], [address], [facility] 02/05/2021 08:23:28 OBGyn Episode No OBEpisode recorded.
--- OUTSIDE RECORDS SUMMARY | 2024-07-04 13:51 | XMS_ITS | Clinical Summary ---
Author Organization [facility] Address [address] [place] [address] Care Team Providers Care Electronic Funds Transfer Coordinator Name Role Phone Yobani Yenni Balderas DO [...] age to complete this topic Care Teams Electronic Funds Transfer Coordinator Relationship Specialty Start Date End Date Yenni Hilton DO [address] [place], [place] PCP - General Family Medicine 07/13/18
--- OUTSIDE RECORDS SUMMARY | 2024-07-04 13:51 | XMS_ITS | Clinical Summary ---
Author Organization [facility] Address [address] [place] [address] Phone Care Team Providers Care Executive Vice President Business Development Name Role Phone Alphonse Maloney MD Primary Care Provider [phone] Allergies Active Allergy Reactions Criticality Noted Date [...] 9 Active cholecalciferol (VITAMIN D-3) 1.25 MG (76941 UT) capsule Take 1 capsule by mouth [...] this topic Insurance HUMANA HUMANA Care Teams Executive Vice President Business Development Relationship Specialty Start Date End Date Alphonse Maloney MD [address] [place] [address] PCP - General Internal Medicine 03/04/22
--- OUTSIDE RECORDS SUMMARY | 2024-07-04 13:51 | XMS_ITS | Clinical Summary ---
Author Organization [facility] Address [address] [place] [address] Care Team Providers Care Advertising Campaign Manager Name Role Phone Yenni Hilton Primary Care Provider [phone] Allergies Active Allergy Reactions Criticality Noted Date [...] age to complete this topic Care Teams Advertising Campaign Manager Relationship Specialty Start Date End Date Yenni Hilotn DO [address] [address] PCP - General Family Medicine 07/13/18
== END 2024-07-04 13:55 | disposition home or self-care (01) ==
PROVIDERS: PCP Internal Medicine; Visit Provider Internal Medicine
DX: I12.9 Hypertensive chronic kidney disease with stage 1 through stage 4 chronic kidney disease, or unspecified chronic kidney disease (principal); E11.69 Type 2 diabetes mellitus with other specified complication; N18.31 Chronic kidney disease, stage 3a; R12 Heartburn; E87.6 Hypokalemia; E53.8 Deficiency of other specified B group vitamins; E55.9 Vitamin D deficiency, unspecified; M25.511 Pain in right shoulder; M25.512 Pain in left shoulder; E78.5 Hyperlipidemia, unspecified

== ENCOUNTER 2024-07-04 12:56 | Outpatient (REF) | payer OTHER, SELFPAY ==
--- NOTE | ~2024-07-04 | XR_ITS ---
EXAMINATION: XR SHOULDER, RIGHT CLINICAL INFORMATION: M25.511 - Pain in right shoulder COMPARISON: None available. TECHNIQUE: Three views of the right shoulder. FINDINGS: No fracture, dislocation, or suspicious bone lesion. There is anatomical alignment. Moderate to severe arthritis in the glenohumeral joint with significant joint space loss, subchondral cystic and sclerotic changes of both the humeral head and the glenoid. Moderate-sized undersurface osteophytes. Mild spurring of the AC joint superiorly and inferiorly. There is a small subacromial spur with a neutral lateral acromion. No significant narrowing of the subacromial space. Surgical clips present in the right axilla. Remainder of the soft tissue and bony structures appear normal. XR/XR shoulder RT min 2V IMPRESSION: 1. No acute findings right shoulder. 2. Moderate to severe likely degenerative arthritis of the glenohumeral joint. 3. Mild arthritis of the AC joint. Electronically signed by: Vincent Stark MD 07/05/2024 03:27 PM [facility]
--- NOTE | ~2024-07-04 | XR_ITS ---
EXAMINATION: XR SHOULDER, LEFT CLINICAL INFORMATION: Pain in left shoulder. COMPARISON: None available. TECHNIQUE: Three views of the left shoulder. FINDINGS: No fracture, dislocation, or suspicious bone lesion. There is anatomical alignment. Moderate arthritis in the glenohumeral joint with significant joint space loss, and mild subchondral cystic and sclerotic changes of both the humeral head and the glenoid. Moderate-sized undersurface osteophytes. Mild spurring of the AC joint superiorly and inferiorly. There is a tiny subacromial spur with a neutral lateral acromion. No significant narrowing of the subacromial space. Remainder of the soft tissue and bony structures appear normal. XR/XR shoulder LT min 2V IMPRESSION: 1. No acute findings left shoulder. 2. Moderate likely degenerative arthritis of the glenohumeral joint. 3. Mild arthritis of the AC joint. Electronically signed by: iVncent Stark MD 07/05/2024 03:30 PM [facility]
--- OUTSIDE RECORDS SUMMARY | 2024-07-04 14:54 | XMS_ITS | Clinical Summary ---
Author Organization [facility] Address [address] [place] [address] Phone Care Team Providers Care Soap Drier Tender Name Role Phone Alphonse Maloney MD Primary Care Provider [phone] Allergies Active Allergy Reactions Criticality Noted Date [...] 9 Active cholecalciferol (VITAMIN D-3) 1.25 MG (64016 UT) capsule Take 1 capsule by mouth [...] this topic Insurance HUMANA HUMANA Care Teams Soap Drier Tender Relationship Specialty Start Date End Date Alphonse Maloney MD [address] [place] [address] PCP - General Internal Medicine 03/04/22
--- OUTSIDE RECORDS SUMMARY | 2024-07-04 14:54 | XMS_ITS | Clinical Summary ---
Author Organization [facility] Address [address] [place] [address] Care Team Providers Care Satellite Television Installer Name Role Phone Yobani Yenni Balderas DO [...] age to complete this topic Care Teams Satellite Television Installer Relationship Specialty Start Date End Date Yenni Hilton DO [address] [place], [place] PCP - General Family Medicine 07/13/18
--- OUTSIDE RECORDS SUMMARY | 2024-07-04 14:54 | XMS_ITS | Clinical Summary ---
Author Organization [facility] Address [address] [place] [address] Care Team Providers Care Waterproofing Mixer Name Role Phone Yenni Hilton Primary Care Provider [phone] Allergies Active Allergy Reactions Criticality Noted Date [...] age to complete this topic Care Teams Waterproofing Mixer Relationship Specialty Start Date End Date Yenni Hilton DO [address] [address] PCP - General Family Medicine 07/13/18
== END 2024-07-04 12:57 | disposition home or self-care (01) ==
LOC: HO.HMGCX 12:56
PROVIDERS: PCP Internal Medicine; Visit Provider Internal Medicine
DX: M25.511 Pain in right shoulder (principal); M25.512 Pain in left shoulder
CPT/HCPCS: 73030

== ENCOUNTER → 2024-07-04 14:03 | Outpatient (BNV) | payer OTHER, SELFPAY | PROVIDERS: PCP Internal Medicine; Visit Provider Radiology Diagnostic Radiology | DX: M25.511 Pain in right shoulder (principal); M25.512 Pain in left shoulder | CPT/HCPCS: 73030 ==

== ENCOUNTER 2025-01-30 12:58 | Outpatient (AMB) | payer OTHER, SELFPAY ==
[2025-01-30 13:01] VITALS: BP 140/80; PULSE 70; RESP 16; TEMP 36.9; O2SAT 94; BMI 35.8
--- NOTE | 2025-01-30 13:01 | A.OFFPC_ITS ---
Vital Signs 01/30/25 13:01 Height 5 ft 2.5 in Weight 199 lb BMI 35.8 BP 140/80 H Blood Pressure Location Rt brachial Position Sitting Respiration 16 Pulse 70 Pulse Source Pulse Oximeter Temp 98.5 F Temp Source Oral Pulse Oximetry (%) 94 Oxygen Delivery Method Nasal Cannula Intake Visit Reasons: [facility] low O2 levels Intake Note: Pt is here today for her HD[facility] low O2 levels Allergies Valium injection Adverse Reaction (Unknown, Uncoded 01/30/25 13:17) halucination IVP contrast dye Adverse Reaction (Uncoded 01/30/25 13:17) Unknown Medication List - Last Reconciled 01/30/25 by Latia Maloney MD amlodipine 5 mg PO DAILY atorvastatin 20 mg PO DAILY carvedilol 12.5 mg PO Q12H cholecalciferol (vitamin D3) 50 mcg PO DAILY duloxetine 60 mg PO DAILY fluticasone propionate 50 mcg/actuation 1 spray intranasal DAILY folic acid 1 mg PO DAILY furosemide (Lasix) 40 mg PO BID meclizine 25 mg PO BID PRN meloxicam 15 mg PO DAILY PRN potassium chloride ER 10 mEq PO DAILY sennosides (Black-Draught Lax-Senna) 8.6 mg PO DAILY PRN solifenacin 10 mg PO DAILY spironolactone 25 mg PO DAILY Tobacco use date assessed: 01/30/25 Fall risk assessment: 1 Fall in past year Last assessed Fall Risk: 01/30/25 Dental Screening Dental Screen Date: 01/30/25 Did you have a dental visit in the last 12 months?: No Did you have a dental problem in the last 6 months where you did not have access to dental care?: No Was dental information given to patient?: Patient declined HPI [facility] low O2 levels HPI Details - The patient is a 74-year-old female pr esenting after recent hospital admission for congestive heart failure. Treated with IV furosemide with food to see and swelling lower extremities - Chronic Kidney Disease Stage 3: Histor y of chronic kidney disease, last seen by nephrology in 2019, no regular follow-up - Obstructive Sleep Apnea: Diagnosed in 2014, no CPAP use, intolerant to using it. Referral for repeat sleep study made. - Prediabetes: Borderline glucose levels , switched from glipizide to dapagliflozin for glucose control and heart failure management. - Cataracts: History of cataracts, under went laser surgery for vision correction. [facility] Medical History (Updated 01/30/25 @ 13:51 by Latia Maloney MD) CKD stage 3b, GFR 30-44 ml/min Heartburn symptom Hypokalemia Rhinitis Lumbar radiculopathy, chronic Lumbar postlaminectomy syndrome Vaginal mass Urinary incontinence Subcutaneous mass of right forearm Depression, major, recurrent Positional lightheadedness Lymphedema of right arm History of right breast cancer Diabetes mellitus, without long-term current use of insulin Hx of breast cancer Pain and swelling of toe of left foot Dyslipidemia SAVANNAH (obstructive sleep apnea) Dizziness Confusion and disorientation Impaired fasting glucose Surgical History History of lumpectomy of right breast History of section History of tonsillectomy History of abdominal surgery Family History Father Dementia Mother HTN (hypertension) History of CVA (cerebrovascular accident) Stroke Paternal Grandmother Diabetes mellitus Brother No problems noted. Daughter No problems noted. Social History Housing: House Patient Tobacco Use Status: Former Tobacco user Years Smoked: 35 yrs e-Cigarette/Vaping Use: Never Used Second Hand Smoke Exposure: No service: No Current occupational status: retired Cognitive needs: No Hearing needs: No Vision needs: Yes Questionnaire PHQ-9 Over the last 2 weeks, how often have you been bothered by any of the following problems? 1. Little interest or pleasure in doing things: not at all 2. Feeling down, depressed, or hopeless: not at all 3. Trouble falling or staying asleep, or sleeping too much: not at all 4. Feeling tired or having little energy: not at all 5. Poor appetite or overeating: several days 6. Feeling bad about yourself - or that you are a failure or have let yourself or your family down: not at all 7. Trouble concentrating on things, such as reading the newspaper or watching television: not at all 8. Moving or speaking so slowly that other people could have noticed. Or the opposite - being so fidgety or restless that you have been moving around a lot more than usual: not at all 9. Thoughts that you would be better off or of hurting yourself in some way: not at all Total score: 1 Depression Screening Interpretation: Negative Depression Screening Done: Yes 95005 - PHQ-9 Billing: Yes Source: Developed by Drs. Manuel Yoon, Chloe Mahajan, Bienvenido Guzman and colleagues, with an educational milan from [employer]. Thrive Questionnaire Date Thrive assessed: 09/28/23 I am a: Patient What is your living situation today?: I have a steady place to live Within the past 12 months, did the food you bought not last and you didn't have the money to get more?: Never true Within the past 12 months, did you worry whether your food would run out before you got money to buy more?: Never true Do you have trouble paying for medicines?: Yes Do you have trouble getting transportation to medical appointments?: No Do you have trouble paying your heating and electricity bill?: Yes Do you have trouble taking care of your child, family member or friend?: No Do you have trouble with day-to-day activities such as bathing, preparing meals, shopping, managing finances, etc.?: No Are you currently unemployed and looking for a job?: No Are you interested in more education?: No Please select the resources that you would like help with: Paying for medicine and Utilities Currently or been in a relationship where the following occur: No concerns reported THRIVE Score: 1 AUDIT C Alcohol Use Questionnaire (AUDIT-C) 1. How often do you have a drink containing alcohol?: Monthly or less 2. How many drinks containing alcohol do you have on a typical day when you are drinking?: 1 or 2 3. How often do you have six or more drinks on one occasion?: Never Total Score: 1 JEY-7 AMB Questionnaire JEY-7 Date JEY - 7 assessed: 09/28/23 Feeling nervous, anxious, or on edge: 0 = Not at all Not being able to stop or control worryin = Not at all Worrying too much about different things: 0 = Not at all Trouble relaxin = Not at all Being so restless that it is hard to sit still: 0 = Not at all Becoming easily annoyed or irritable: 0 = Not at all Feeling afraid as if something awful might happen: 0 = Not at all Total JEY-7 score (0-4 normal; 5-9 mild; 10-14 moderate; 15-21 severe): 0 Source: Developed by Drs. Manuel Yoon, Chloe Mahajan, Bienvenido Guzman and colleagues, with an educational milan from [employer]. Review of Systems Const Denies fever(s) and Denies headache(s) Eyes Reports no additional complaints ENT Denies headache(s) Card Denies chest pain and Denies irregular heart rhythm Resp Details: : Reports dyspnea on exertion, uses supplemental oxygen at 2 liters at rest and 3-4 liters when active. Denies cough GI Reports as per HPI Reports no additional complaints Musc Reports no additional complaints Neuro Denies headache(s) and Denies focal weakness Psych Reports no additional complaints Endo Denies polydipsia and Denies polyuria Saurabh/Lymph Reports no additional complaints Aller/Immun Reports no additional complaints Physical exam (Primary Care) Vital Signs: Last Vital Signs Temp 98.5 F 01/30/25 13:01 Pulse 70 01/30/25 13:01 Resp 16 01/30/25 13:01 BP 140/80 H 01/30/25 13:01 Pulse Ox 94 01/30/25 13:01 Oxygen Delivery Method Nasal Cannula 01/30/25 13:01 BMI result Body Mass Index 35.8 BMI Assessment/Plan discussion: High BMI High, discussed plan: lifestyle, weight reduction, dietary and physical activity Tobacco/Smoking Status: Tobacco use Status Tobacco use date assessed 01/30/25 01/30/25 13:08 Patient Tobacco Use Status Former Tobacco user 01/30/25 13:08 e-Cigarette/Vaping Use Never Used 01/30/25 13:08 PHQ-9: PHQ-9 Score PHQ-9: Total score 1 01/30/25 13:20 Depression Screening Interpretation: Negative Thrive Assessment: Date of Thrive Assessment Date Thrive assessed 09/28/23 01/30/25 13:08 Currently or been in a relationship where the following occur: No concerns reported Const General: no acute distress and alert Nutritional Appearance: obese Orientation/consciousness: patient oriented x3 Limitations: ambulation with walker HENMT Head: Yes normocephalic General nose exam: Normal external nose present Face and sinus: Yes face symmetric Mouth: Normal oral and palatal mucosa present, oropharynx normal and moist mucous membranes Neck Neck: Yes full ROM, Yes no lymphadenopathy and Yes supple Resp Auscultation: clear to auscultation bilaterally Cardio Rate: regular rate Rhythm: regular rhythm Heart sounds: S1 normal heart sound present and S2 normal heart sound present GI Inspection: Yes Abdominal panniculus present and Yes obesity Palpation (GI): Soft to palpation, no guarding and no masses Auscultation: normal bowel sounds Neuro General: patient oriented x3, gait normal, Normal light touch and pain sensation, no focal motor deficits and CN's II-XI intact bilaterally Extrem Other: Decreased range of motion of shoulder joint due to pain , no gross bone deformity or joint swelling seen General: Yes no joint enlargement, Yes no pedal edema and Yes no calf tenderness Coding Level of Care Code Est Pt Level 4 (90700) Complex EM visit Add On G2211 Diagnoses SAVANNAH (obstructive sleep apnea) G47.33 Dyslipidemia E78.5 Essential hypertension I10 Diabetes mellitus, without long-term current use of insulin E11.9 Vitamin D deficiency E55.9 CKD stage 3b, GFR 30-44 ml/min N18.32 Hypokalemia E87.6 History of acute heart failure Z86.79 Additional Codes PHQ-9 - 98456 - PHQ-9 Billing: Yes ([id number]) Assessment & Plan Assessment & Plan (1) SAVANNAH (obstructive sleep apnea): Code(s): G47.33 - Obstructive sleep apnea (adult) (pediatric) Category: Medical (2) Dyslipidemia: Code(s): E78.5 - Hyperlipidemia, unspecified Category: Medical (3) Essential hypertension: Code(s): I10 - Essential (primary) hypertension Category: Medical (4) Diabetes mellitus, without long-term current use of insulin: Code(s): E11.9 - Type 2 diabetes mellitus without complications Category: Medical (5) Vitamin D deficiency: Code(s): E55.9 - Vitamin D deficiency, unspecified Category: Medical (6) CKD stage 3b, GFR 30-44 ml/min: Code(s): N18.32 - Chronic kidney disease, stage 3b Category: Medical (7) Dyslipidemia: Code(s): E78.5 - Hyperlipidemia, unspecified Category: Medical (8) Essential hypertension: Code(s): I10 - Essential (primary) hypertension Category: Medical (9) Vitamin D deficiency: Code(s): E55.9 - Vitamin D deficiency, unspecified Category: Medical (10) Hypokalemia: Code(s): E87.6 - Hypokalemia Category: Medical (11) History of acute heart failure: Code(s): Z86.79 - Personal history of other diseases of the circulatory system Plan Plan Patient was informed and verbally consented to the use of an ambient scribe for clinic note documentation during this visit. 1. Heart failure, unspecified I50.9 HCC 85 The patient is advised to continue furosemide for fluid management and to monitor symptoms of dyspnea and edema. Follow-up with cardiology is necessary to reassess cardiac function and adjust treatment as needed. 2. Chronic kidney disease, stage 3 unspecified N18.30 HCC 138 The patient will have blood work to evaluate kidney function and electrolytes. A referral to nephrology is recommended for further management. 3. Obstructive sleep apnea (adult) (pediatric) G47.33 A referral for a repeat sleep study has been made to reassess the need for CPAP therapy. 4. Prediabetes R73.03 The patient is managed with dapagliflozin to aid in glucose control and heart failure management. Orders: Orders Hemoglobin A1c 01/30/25 E11.9 - Type 2 diabetes mellitus without complications, E55.9 - Vitamin D deficiency, unspecified, E78.5 - Hyperlipidemia, unspecified, I10 - Essential (primary) hypertension, N18.31 - Chronic kidney disease, stage 3a Vitamin D 25-OH Total 01/30/25 E11.9 - Type 2 diabetes mellitus without complications, E55.9 - Vitamin D deficiency, unspecified, E78.5 - Hyperlipidemia, unspecified, I10 - Essential (primary) hypertension, N18.31 - Chronic kidney disease, stage 3a Basic Metabolic Panel 01/30/25 E11.9 - Type 2 diabetes mellitus without complications, E55.9 - Vitamin D deficiency, unspecified, E78.5 - Hyperlipidemia, unspecified, I10 - Essential (primary) hypertension, N18.31 - Chronic kidney disease, stage 3a Lipid Panel 01/30/25 E11.9 - Type 2 diabetes mellitus without complications, E55.9 - Vitamin D deficiency, unspecified, E78.5 - Hyperlipidemia, unspecified, I10 - Essential (primary) hypertension, N18.31 - Chronic kidney disease, stage 3a Alanine Aminotransferase 01/30/25 E11.9 - Type 2 diabetes mellitus without complications, E55.9 - Vitamin D deficiency, unspecified, E78.5 - Hyperlipidemia, unspecified, I10 - Essential (primary) hypertension, N18.31 - Chronic kidney disease, stage 3a Aspartate Amino Transferase 01/30/25 E11.9 - Type 2 diabetes mellitus without complications, E55.9 - Vitamin D deficiency, unspecified, E78.5 - Hyperlipidemia, unspecified, I10 - Essential (primary) hypertension, N18.31 - Chronic kidney disease, stage 3a Referrals Sleep Medicine Referral G47.33 - Obstructive sleep apnea (adult) (pediatric), Z86.79 - Personal history of other diseases of the circulatory system Nephrology Referral E11.9 - Type 2 diabetes mellitus without complications, E55.9 - Vitamin D deficiency, unspecified, E87.6 - Hypokalemia, I10 - Essential (primary) hypertension, N18.32 - Chronic kidney disease, stage 3b Medications: New dapagliflozin propanediol 5 mg PO QAM 30 tabs 5RF
--- OUTSIDE RECORDS SUMMARY | 2025-01-30 13:41 | XMS_ITS | Clinical Summary ---
Author Organization [facility] Address [address] [place] [address] Care Team Providers Care Manager Creative Name Role Phone Yenni Hilton Primary Care Provider [phone] Allergies Active Allergy Reactions Criticality Noted Date [...] 1-dose 75+ series) 2023 Influenza Vaccine (#1) 2025 Hepatitis B Vaccines Aged Out No long er eligible based on patient's age to complete this topic RSV Ped < 20 months Aged Out No longe r eligible based on patient's age to complete this topic Care Teams Manager Creative Relationship Specialty Start Date End Date Yenni Hilton DO [address] [address] PCP - General Family Medicine 07/13/18
--- OUTSIDE RECORDS SUMMARY | 2025-01-30 13:41 | XMS_ITS | Clinical Summary ---
Author Organization [facility] Address [address] [place] [address] Phone Care Team Providers Care Children[employer] Ch[employer] Director Name Role Phone Alphonse Maloney MD Primary Care Provider [phone] Allergies Active Allergy Reactions Criticality Noted Date [...] 9 Active cholecalciferol (VITAMIN D-3) 1.25 MG (60658 UT) capsule Take 1 capsule by mouth [...] creatinine above reference range 08/19/2020 05/25/2022 Immunizations Immunization Administration Dates Next Due H1N1 Inj Preservative [...] Visual Foot Exam 07/07/2020 Influenza Vaccine (#1) 2025 7, 04/06/2015, 03/21/2014, Additional history exists Pneumococcal Vaccine: 50+ Years Completed 10/11/2015, 03/21/2014 Pneumococcal Vaccine: Peds (0 to 5 Years) and At-Risk Patients (6 to 49 Years) Discontinued 10/11/2015, 03/21/2014 Hepatitis B Vaccine Aged Out No longe r eligible based on patient's age to complete this topic Insurance [employer] Care Teams Children[employer] Director Relationship Specialty Start Date End Date Alphonse Maloney MD [address] [place] [address] PCP - General Internal Medicine 03/04/22
--- OUTSIDE RECORDS SUMMARY | 2025-01-30 13:41 | XMS_ITS | Clinical Summary ---
Author Organization [facility] Address [address] [place] [address] Care Team Providers Care Cloth Winder Machine Operator Name Role Phone Yobani Yenni Balderas DO Primary Care Provider Surgical History Surgery Date Site/Laterality Comments SECTION PROCEDURE: SECTION Medical History Medical History Date Comments Cancer (CMS/HCC V24, CMS/HCC V28) DX:Cancer (HCC) Gout DX:Gout Hypertension DX:Hypertension GERD (gastroesophageal reflux disease) DX:GERD (gastroesophageal reflux disease) Social History Tobacco Use Types Packs/Day Years Used Date Smoking Tobacco: Never Assessed Comments Unknown Sex and Gender Information Value Date Recorded Sex Assigned at Not on file Legal Sex Female 7:10 PM EST Gender Identity Not on file Sexual Orientation Not on file Obstetrics History Plan of Treatment Health Maintenance Due Date Last Done Comments Zoster Vaccines (1 of 2) 1998 DTaP,Tdap,and Td Vaccines (2 - Td or Tdap) 09/12/2017 09/13/2007 RSV Immunization Adult Patients (1 - 1-dose 75+ series) 2023 Cholesterol Screening (Lipid Panel) 06/01/2023 Colorectal Cancer Screening: Colonoscopy 06/01/2023 Falls Risk Assessment 06/01/2023 Hepatitis C Screening 06/01/2023 Hypertension/CHF/CAD Annual BMP Blood Test 06/01/2023 Osteoporosis Screening (Bone Density Screening) 06/01/2023 Social Influencers of Health Screening 06/01/2023 COVID-19 Vaccine ( - season) 2024 Depression Screening 06/07/2024 Influenza Vaccine (#1) 2025 7, 04/06/2015, 03/21/2014, Additional history exists Pneumococcal Vaccine: 50+ Years Completed 10/11/2015, 03/21/2014 HIB Vaccines Aged [...] patient's age to complete this topic Meningococcal B Vaccine Aged Out No l onger eligible based on patient's age to complete this topic RSV Immunization Patients Under 20 months Aged Out No longer eligible based on patient's age to complete this topic Varicella Vaccines Aged Out No longer eligible based on patient's age to complete this topic Care Teams Cloth Winder Machine Operator Relationship Specialty Start Date End Date Yenni Hilton DO [address] [place] [address] [place] [address] PCP - General Family Medicine 07/13/18
== END 2025-01-30 13:54 | disposition home or self-care (01) ==
LOC: HO.HMCC 12:59
PROVIDERS: PCP Internal Medicine; Visit Provider Internal Medicine
DX: I12.9 Hypertensive chronic kidney disease with stage 1 through stage 4 chronic kidney disease, or unspecified chronic kidney disease (principal); E11.69 Type 2 diabetes mellitus with other specified complication; N18.32 Chronic kidney disease, stage 3b; G47.33 Obstructive sleep apnea (adult) (pediatric); E78.5 Hyperlipidemia, unspecified; E55.9 Vitamin D deficiency, unspecified; E87.6 Hypokalemia; Z86.79 Personal history of other diseases of the circulatory system

== ENCOUNTER 2025-01-30 12:58 | Outpatient (REF) | payer OTHER, SELFPAY ==
[2025-01-30 16:33] LABS: Total Hemoglobin (HGBA1C) 3792.9842 umol/L
[2025-01-30 16:56] LABS: Alanine Aminotransferase 11 U/L (0-31); Anion Gap 15 (12-20); Aspartate Amino Transferase 22 U/L (5-31); Blood Urea Nitrogen 18 mg/dL (9-16); Calcium 10.0 mg/dL (8.4-10.2); Carbon Dioxide 34 mmol/L (22-29); Chloride 95 mmol/L (96-108); Cholesterol 165 mg/dL (<200); Estimated Glomerular Filt Rate 30; HDL Cholesterol 35 mg/dL (>40); Potassium 3.6 mmol/L (3.3-5.1); Sodium 140 mmol/L (135-145); Triglycerides 122 mg/dL (<150)
== END 2025-01-30 12:59 | disposition home or self-care (01) ==
LOC: HO.HMGCLDS 12:58
PROVIDERS: PCP Internal Medicine; Visit Provider Internal Medicine
DX: E11.22 Type 2 diabetes mellitus with diabetic chronic kidney disease (principal); I12.9 Hypertensive chronic kidney disease with stage 1 through stage 4 chronic kidney disease, or unspecified chronic kidney disease; N18.32 Chronic kidney disease, stage 3b; G47.33 Obstructive sleep apnea (adult) (pediatric); E78.5 Hyperlipidemia, unspecified; E55.9 Vitamin D deficiency, unspecified; E87.6 Hypokalemia; Z86.79 Personal history of other diseases of the circulatory system
CPT/HCPCS: 36415; 80048; 80061; 82306; 83036; 84450; 84460; 96127

== ENCOUNTER 2025-05-01 11:09 | Outpatient (AMB) | payer OTHER, SELFPAY ==
[2025-05-01 11:21] VITALS: BP 144/70; PULSE 57; RESP 16; TEMP 36.6; O2SAT 93; BMI 37.8
--- NOTE | 2025-05-01 11:21 | MHC.PC.OV ---
Vital Signs 05/01/25 11:21 Height 5 ft 2.5 in Weight 210 lb BMI 37.8 BP 144/70 H Blood Pressure Location Lt brachial Position Sitting Respiration 16 Pulse 57 Pulse Source Pulse Oximeter Temp 97.9 F Temp Source Oral Pulse Oximetry (%) 93 Oxygen Delivery Method Nasal Cannula Intake Visit Reasons: follow up Intake Note: Pt is here today for a f/u, but also c/o hair loss and rash on face Peanut Roaster Required: No Allergies Valium injection Adverse Reaction (Unknown, Uncoded 05/01/25 11:37) halucination IVP contrast dye Adverse Reaction (Uncoded 05/01/25 11:37) Unknown Medication List - Last Reconciled 05/01/25 by Latia Maloney MD amlodipine 5 mg PO DAILY atorvastatin 20 mg PO DAILY carvedilol 12.5 mg PO Q12H cholecalciferol (vitamin D3) 50 mcg PO DAILY duloxetine 60 mg PO DAILY fluticasone propionate 50 mcg/actuation 1 spray intranasal DAILY folic acid 1 mg PO DAILY furosemide (Lasix) 40 mg PO BID glipizide 5 mg PO DAILY meclizine 25 mg PO BID PRN meloxicam 15 mg PO DAILY PRN potassium chloride ER 10 mEq PO DAILY sennosides (Black-Draught Lax-Senna) 8.6 mg PO DAILY PRN solifenacin 10 mg PO DAILY spironolactone 25 mg PO DAILY Tobacco use date assessed: 05/01/25 Fall risk assessment: No Falls in past year Dental Screening Dental Screen Date: 05/01/25 Did you have a dental visit in the last 12 months?: No Did you have a dental problem in the last 6 months where you did not have access to dental care?: No Was dental information given to patient?: Patient declined HPI follow up HPI Details 75-year-old lady with his past medical history significant for diabetic nephropathy, chronic disease stage IIIB, vitamin-D deficiency, lumbar radiculopathy and depression as well as hypertension dyslipidemia and obstructive sleep apnea, here today for follow-up. She Mr. Nephrology appointment, patient's daughter states that she has to call and reschedule appointment to see nephrology. Pressure today is still elevated at 144/70. Denies any chest pain, shortness of breath but complains of thinning hair and scaly rash on hairline. [facility] Medical History (Updated 05/01/25 @ 11:56 by Latia Maloney MD) Diabetic nephropathy associated with diabetes mellitus due to underlying condition CKD stage 3b, GFR 30-44 ml/min Heartburn symptom Hypokalemia Rhinitis Lumbar radiculopathy, chronic Lumbar postlaminectomy syndrome Vaginal mass Urinary incontinence Subcutaneous mass of right forearm Depression, major, recurrent Positional lightheadedness Lymphedema of right arm History of right breast cancer Diabetes mellitus, without long-term current use of insulin Hx of breast cancer Pain and swelling of toe of left foot Dyslipidemia SAVANNAH (obstructive sleep apnea) Dizziness Confusion and disorientation Impaired fasting glucose Surgical History History of lumpectomy of right breast History of section History of tonsillectomy History of abdominal surgery Family History Father Dementia Mother HTN (hypertension) History of CVA (cerebrovascular accident) Stroke Paternal Grandmother Diabetes mellitus Brother No problems noted. Daughter No problems noted. Social History Housing: House Patient Tobacco Use Status: Former Tobacco user Years Smoked: 35 yrs e-Cigarette/Vaping Use: Never Used Second Hand Smoke Exposure: No service: No Current occupational status: retired Cognitive needs: No Hearing needs: No Vision needs: Yes Questionnaire PHQ-9 Over the last 2 weeks, how often have you been bothered by any of the following problems? Depression Screening Interpretation: Negative Depression Screening Done: Yes Source: Developed by Drs. Manuel Yoon, Chloe Mahajan, Bienvenido Guzman and colleagues, with an educational milan from [employer]. Thrive Questionnaire Date Thrive assessed: 01/30/25 I am a: Patient What is your living situation today?: I have a steady place to live Within the past 12 months, did the food you bought not last and you didn't have the money to get more?: Never true Within the past 12 months, did you worry whether your food would run out before you got money to buy more?: Never true Do you have trouble paying for medicines?: Yes Do you have trouble getting transportation to medical appointments?: No Do you have trouble paying your heating and electricity bill?: Yes Do you have trouble taking care of your child, family member or friend?: No Do you have trouble with day-to-day activities such as bathing, preparing meals, shopping, managing finances, etc.?: No Are you currently unemployed and looking for a job?: No Are you interested in more education?: No Currently or been in a relationship where the following occur: No concerns reported THRIVE Score: 1 JEY-7 AMB Questionnaire JEY-7 Date JEY - 7 assessed: 09/28/23 Source: Developed by Drs. Manuel Yoon, Chloe Mahajan, Bienvenido Guzman and colleagues, with an educational milan from [employer]. Review of Systems Const All systems reviewed & are unremarkable except as noted in HPI and below Physical exam (Primary Care) Vital Signs: Last Vital Signs Temp 97.9 F 05/01/25 11:21 Pulse 57 05/01/25 11:21 Resp 16 05/01/25 11:21 BP 144/70 H 05/01/25 11:21 Pulse Ox 93 05/01/25 11:21 Oxygen Delivery Method Nasal Cannula 05/01/25 11:21 BMI result Body Mass Index 37.8 BMI Assessment/Plan discussion: High BMI High, discussed plan: lifestyle, weight reduction, dietary and physical activity Tobacco/Smoking Status: Tobacco use Status Tobacco use date assessed 05/01/25 05/01/25 11:29 Patient Tobacco Use Status Former Tobacco user 05/01/25 11:21 e-Cigarette/Vaping Use Never Used 05/01/25 11:21 Depression Screening Interpretation: Negative Thrive Assessment: Date of Thrive Assessment Date Thrive assessed 01/30/25 05/01/25 11:21 Currently or been in a relationship where the following occur: No concerns reported Const General: no acute distress and alert Nutritional Appearance: obese Orientation/consciousness: patient oriented x3 Limitations: ambulation with walker HENMT Head: Yes normocephalic Face and sinus: Yes face symmetric Mouth: moist mucous membranes Neck Neck: Yes full ROM, Yes no lymphadenopathy and Yes supple Resp Auscultation: clear to auscultation bilaterally Cardio Rate: regular rate Rhythm: regular rhythm Heart sounds: S1 normal heart sound present and S2 normal heart sound present GI Inspection: Yes Abdominal panniculus present and Yes obesity Palpation (GI): Soft to palpation, no guarding and no masses Auscultation: normal bowel sounds Skin Rashes: rashes noted (Slightly scaly rash on frontal hairline) Hair: brittle, general thinning and without patchy alopecia Neuro General: patient oriented x3, Normal light touch and pain sensation, no focal motor deficits and CN's II-XI intact bilaterally Extrem Other: Decreased range of motion of shoulder joint due to pain , no gross bone deformity or joint swelling seen General: Yes no joint enlargement, Yes no pedal edema and Yes no calf tenderness Coding Level of Care Code Est Pt Level 4 (85767) Diagnoses Essential hypertension I10 Dyslipidemia E78.5 Diabetes mellitus, without long-term current use of insulin E11.9 Vitamin D deficiency E55.9 Folic acid deficiency E53.8 CKD stage 3b, GFR 30-44 ml/min N18.32 Hair loss L65.9 Diabetic nephropathy associated with diabetes mellitus due to underlying condition E08.21 Rash of face R21 Assessment & Plan Assessment & Plan (1) Essential hypertension: Code(s): I10 - Essential (primary) hypertension Category: Medical Plan: Blood pressure still not at goal of less than 130/80. Reinforced adherence to a low-salt diet, avoidance of NSAIDs. Continue with current medication she include spironolactone 25 mg daily, amlodipine 5 mg daily and carvedilol 12.5 mg taken twice a day. None of these medications will cause hair loss (2) Dyslipidemia: Code(s): E78.5 - Hyperlipidemia, unspecified Category: Medical Plan: Continue atorvastatin, fasting lipids , liver enzymes ordered today (3) Diabetes mellitus, without long-term current use of insulin: Code(s): E11.9 - Type 2 diabetes mellitus without complications Category: Medical Plan: Hemoglobin A1c and urine microalbumin ordered today. Continued on glipizide 5 mg once a day . Reminded to schedule appointment with Ophthalmology for her diabetes retinopathy screening. endocrine referral ordered (4) Vitamin D deficiency: Code(s): E55.9 - Vitamin D deficiency, unspecified Category: Medical Plan: Will check vitamin-D level. Continue with cholecalciferol 50 mcg daily (5) Folic acid deficiency: Code(s): E53.8 - Deficiency of other specified B group vitamins Category: Medical Plan: Continue taking folic acid 1 mg daily (6) CKD stage 3b, GFR 30-44 ml/min: Code(s): N18.32 - Chronic kidney disease, stage 3b Category: Medical Plan: Advised to call and reschedule appointment with Nephrology as soon as possible (7) Hair loss: Code(s): L65.9 - Nonscarring hair loss, unspecified Plan: Will check TSH and free T4 as well as vitamin B12 and folic acid levels, and CBC (8) Diabetic nephropathy associated with diabetes mellitus due to underlying condition: Code(s): E08.21 - Diabetes mellitus due to underlying condition with diabetic nephropathy Category: Medical Plan: Avoidance of NSAIDs (9) Rash of face: Code(s): R21 - Rash and other nonspecific skin eruption Plan: Prescription sent for mometasone cream 0.1% apply sparingly to affected area on face once a day for no more than 10 days at a time Orders: Orders Vitamin D 25-OH Total 05/01/25 E11.9 - Type 2 diabetes mellitus without complications, E53.8 - Deficiency of other specified B group vitamins, E55.9 - Vitamin D deficiency, unspecified, E78.5 - Hyperlipidemia, unspecified, I10 - Essential (primary) hypertension, L65.9 - Nonscarring hair loss, unspecified, N18.32 - Chronic kidney disease, stage 3b Lipid Panel 05/01/25 E11.9 - Type 2 diabetes mellitus without complications, E53.8 - Deficiency of other specified B group vitamins, E55.9 - Vitamin D deficiency, unspecified, E78.5 - Hyperlipidemia, unspecified, I10 - Essential (primary) hypertension, L65.9 - Nonscarring hair loss, unspecified, N18.32 - Chronic kidney disease, stage 3b Comprehensive [place]. Panel Fast 05/01/25 E11.9 - Type 2 diabetes mellitus without complications, E53.8 - Deficiency of other specified B group vitamins, E55.9 - Vitamin D deficiency, unspecified, E78.5 - Hyperlipidemia, unspecified, I10 - Essential (primary) hypertension, L65.9 - Nonscarring hair loss, unspecified, N18.32 - Chronic kidney disease, stage 3b Complete Blood Count Auto Diff 05/01/25 E11.9 - Type 2 diabetes mellitus without complications, E53.8 - Deficiency of other specified B group vitamins, E55.9 - Vitamin D deficiency, unspecified, E78.5 - Hyperlipidemia, unspecified, I10 - Essential (primary) hypertension, L65.9 - Nonscarring hair loss, unspecified, N18.32 - Chronic kidney disease, stage 3b TSH reflex Free T4 05/01/25 E11.9 - Type 2 diabetes mellitus without complications, E53.8 - Deficiency of other specified B group vitamins, E55.9 - Vitamin D deficiency, unspecified, E78.5 - Hyperlipidemia, unspecified, I10 - Essential (primary) hypertension, L65.9 - Nonscarring hair loss, unspecified, N18.32 - Chronic kidney disease, stage 3b Vitamin B12 and Folate 05/01/25 E11.9 - Type 2 diabetes mellitus without complications, E53.8 - Deficiency of other specified B group vitamins, E55.9 - Vitamin D deficiency, unspecified, E78.5 - Hyperlipidemia, unspecified, I10 - Essential (primary) hypertension, L65.9 - Nonscarring hair loss, unspecified, N18.32 - Chronic kidney disease, stage 3b Hemoglobin A1c 05/01/25 E11.9 - Type 2 diabetes mellitus without complications, E53.8 - Deficiency of other specified B group vitamins, E55.9 - Vitamin D deficiency, unspecified, E78.5 - Hyperlipidemia, unspecified, I10 - Essential (primary) hypertension, L65.9 - Nonscarring hair loss, unspecified, N18.32 - Chronic kidney disease, stage 3b Microalbumin, Random (w Creat) 05/01/25 E11.9 - Type 2 diabetes mellitus without complications, E53.8 - Deficiency of other specified B group vitamins, E55.9 - Vitamin D deficiency, unspecified, E78.5 - Hyperlipidemia, unspecified, I10 - Essential (primary) hypertension, L65.9 - Nonscarring hair loss, unspecified, N18.32 - Chronic kidney disease, stage 3b Referrals Endocrinology Referral E08.21 - Diabetes mellitus due to underlying condition with diabetic nephropathy, E11.9 - Type 2 diabetes mellitus without complications Medications: New mometasone 0.1% 1 appl topical DAILY 15 grams 0RF 10 days R21 - Rash and other nonspecific skin eruption
--- OUTSIDE RECORDS SUMMARY | 2025-05-01 14:44 | XMS_ITS | Clinical Summary ---
Author Organization [facility] it Address [address] [place] [address] Care Team Providers Care Pipe Testing Technician Name Role Phone Yobani Yenni Balderas DO [...] Health Maintenance Due Date Last Done Comments Colorectal Cancer Screening: Colonoscopy 1948 Diabetes: Annual GFR (Glomerular Filtration Rate) 1948 Diabetes: Annual Foot Exam 1958 Diabetes: Annual Retina Eye Exam 1958 Zoster Vaccines (1 of 2) 1998 DTaP,Tdap,and Td Vaccines (2 - Td or Tdap) 09/12/2017 09/13/2007 RSV Immunization Adult Patients (1 - 1-dose 75+ series) 2023 Cholesterol Screening (Lipid Panel) 06/01/2023 Falls Risk Assessment 06/01/2023 Hepatitis C Screening 06/01/2023 Hypertension/CHF/CAD Annual BMP Blood Test 06/01/2023 Osteoporosis Screening (Bone Density Screening) 06/01/2023 Social Influencers of Health Screening 06/01/2023 Depression Screening 06/07/2024 COVID-19 Vaccine (2024- season) 2025 Influenza Vaccine (#1) 2025 7, 04/06/2015, 03/21/2014, Additional history exists Diabetes: Annual Urine Albumin-Creatinine Ratio (uACR) 03/26/2025 Diabetes: Blood Sugar Control Test (HGBA1C) 03/26/2025 Pneumococcal Vaccine: 50+ Years Completed 10/11/2015, 03/21/2014 [...] age to complete this topic Care Teams Pipe Testing Technician Relationship Specialty Start Date End Date Yenni Hilton DO [address] [place] PCP - General Family Medicine 07/13/18
--- OUTSIDE RECORDS SUMMARY | 2025-05-01 14:44 | XMS_ITS | Clinical Summary ---
Author Organization [facility] Address [address] [place] [address] Phone Care Team Providers Care Windows Server Administrator Name Role Phone Alphonse Maloney MD Primary Care Provider [phone] Allergies Active Allergy Reactions Criticality Noted Date [...] 9 Active cholecalciferol (VITAMIN D-3) 1.25 MG (08939 UT) capsule Take 1 capsule by mouth [...] on patient's age to complete this topic Procedures Procedure Name Priority Date/Time Associated Diagnosis Comments RENAL FUNCTION PANEL (EXTERNAL LAB ENTRY) Routine 01/30/2025 from Last 3 Months Results * Renal Function Panel (External Lab) (01/30/2025) Glucose 122 mg/dL BUN 18 mg/dL eGFR 30 Sodium 140 mEq/L Potassium 3.6 mEq/L Chloride 95 Carbon Dioxide 34 mmol/L Calcium 10.0 mg/dL Creatinine 1.67 mg/dL Anion Gap 15 Blood 01/30/2025 us Historical Provider LAB BLOOD ORDERABLES Brisa l Result from Last 3 Months Insurance [employer] Care Teams Windows Server Administrator Relationship Specialty Start Date End Date Alphonse Maloney MD PCP - General Internal Medicine 03/04/22
--- OUTSIDE RECORDS SUMMARY | 2025-05-01 14:44 | XMS_ITS | Clinical Summary ---
Author Organization [facility] Address [address] [place] [address] Care Team Providers Care Boiler Riveter Name Role Phone Yenni Hilton Primary Care Provider [phone] Allergies Active Allergy Reactions Criticality Noted Date [...] age to complete this topic Care Teams Boiler Riveter Relationship Specialty Start Date End Date Yenni Hilton DO [address] [address] PCP - General Family Medicine 07/13/18
== END 2025-05-01 12:05 | disposition home or self-care (01) ==
LOC: HO.HMCC 11:10
PROVIDERS: PCP Internal Medicine; Visit Provider Internal Medicine
DX: I10 Essential (primary) hypertension (principal); E78.5 Hyperlipidemia, unspecified; E55.9 Vitamin D deficiency, unspecified; E53.8 Deficiency of other specified B group vitamins; E11.21 Type 2 diabetes mellitus with diabetic nephropathy; N18.32 Chronic kidney disease, stage 3b; L65.9 Nonscarring hair loss, unspecified; R21 Rash and other nonspecific skin eruption